=== PATIENT | female | born 1985 | race American Indian/Alaskan Native ===

== ENCOUNTER 2020-01-25 17:58 | Inpatient (IN) | payer MEDICAID ==
--- NOTE | 2020-01-25 20:05 | Event Note ---
ED Screening Note ED Screening Note: n/v that began two days ago no diarrhea +generalized weakness +fatigue mild left sided abd pain no GI doctor states she sees a roasterman and associate professor physician stage 4 CKD PMHx lupus nephritis, asthma, HTN allergy: naproxen LNMP: 01/22/2020 This initial assessment/diagnostic orders/clinical plan/treatment(s) is/are subject to change based on patients health status, clinical progression and re- assessment by fellow clinical providers in the ED. Further treatment and workup at subsequent clinical providers discretion. Patient/guardian urged not to elope from the ED as their condition may be serious if not clinically assessed and managed. Initial orders include: labs, UA
[2020-01-25 20:28] LABS: Basophils % (Auto) 0.9 % (0.0-1.8); Eosinophils # (Auto) 0.1 K/mm3 (0.0-0.4); Eosinophils % (Auto) 1.9 % (0.0-4.3); Hemoglobin 6.6 gm/dl (10.1-14.3); Lymphocytes # (Auto) 1.7 K/mm3 (1.2-5.4); Lymphocytes % (Auto) 40.2 % (13.4-35.0); Mean Corpuscular HGB Conc 34 % (30-34); Mean Corpuscular Volume 87 fl (79-97); Monocytes # (Auto) 0.3 K/mm3 (0.0-0.8); Monocytes % (Auto) 6.5 % (0.0-7.3); Platelet Count 193 K/mm3 (140-440); Red Blood Count 2.24 M/mm3 (3.65-5.03); Red Cell Distribution Width 16.2 % (13.2-15.2)
[2020-01-25 20:31] LABS: Hematocrit 19.4 % (30.3-42.9)
[2020-01-25 20:48] LABS: Albumin 4.5 g/dL (3.9-5); Calcium 7.4 mg/dL (8.4-10.2)
[2020-01-25 21:21] LABS: Bilirubin,Urine NEG (Negative); Blood,Urine SM (Negative); Color,Urine Straw (Yellow); Urobilinogen,Urine < 2.0 mg/dL (<2.0)
[2020-01-25 21:26] LABS: Protein,Urine >500 mg/dL (Negative)
[2020-01-25] MEDS ORDERED: ONDANSETRON 4 MG/2 ML INJ IV ONE (23:26)
--- NOTE | 2020-01-25 23:29 | Emergency Department Report ---
- General Chief complaint: Recheck/Abnormal Lab/Rx Stated complaint: KIDNEY PROBLEM/FATIGUE/VOMITTING Time Seen by Provider: 01/25/20 20:04 Source: patient Mode of arrival: Ambulatory Limitations: No Limitations - History of Present Illness Initial comments: 34-year-old female with a past medical history of lupus and chronic renal sufficiency with AV fistula placement this past August presents to the hospital with complaints of progressively worsening weakness, mild shortness of breath, fatigue that has progressed to nausea, vomiting, and p.o. intolerance. Patient also complaining of mild abdominal discomfort and lower extremity edema. She was told by her [employer] financial[employer] developer Dr. Sanchez that she needed to start dialysis. Patient has a matured AV fistula but has not undergone dialysis in the past. No complaints of fever. Patient had a recent menstrual cycle but denies heavy v aginal bleeding. She also denies melena or hematochezia. Patient states she urinates a lot throughout the day - Related Data Allergies Allergy/AdvReac Type Severity Reaction Status Date / Time naproxen [From Naprosyn] Allergy Hives Verified 01/25/20 23:41 ED Review of Systems ROS: Stated complaint: KIDNEY PROBLEM/FATIGUE/VOMITTING Other details as noted in HPI Comment: All other systems reviewed and negative ED Past Medical Hx - Past Medical History Previous Medical History?: Yes Hx Hypertension: Yes Hx Renal Disease: Yes - Surgical History Past Surgical History?: Yes Additional Surgical History: AV fistula left upper arm. - Social History Smoking Status: Never Smoker Substance Use Type: None ED Physical Exam - General Limitations: No Limitations - Other Other exam information: General: No acute distress Head: Atraumatic Eyes: normal appearance ENT: Moist mucous membranes Neck: Normal appearance, no midline tenderness Chest: Clear to auscultation bilaterally CV: Regular rate and rhythm Abdomen: Soft, normal bowel sounds, nontender, nondistended, no rebound or guarding Rectal: Guaiac negative brown stool Back: Normal inspection Extremity: Lower extremity edema, full range of motion. Left AV fistula to upper arm with palpable thrill Neuro: Alert O x 3, no facial asymmetry, speech clear, no gross motor sensory deficit Psych: Appropriate behavior Skin: No rash ED Course Vital Signs 01/25/20 01/25/20 19:47 23:30 Temperature 98.0 F Pulse Rate 121 H 92 H Respiratory 18 19 Rate Blood Pressure 149/88 139/84 O2 Sat by Pulse 100 100 Oximetry - Consultations Consultation #1: 01/25/20 23:[address] Sanchez and he recommends admission for dialysis. Type and screen ordered with plan to transfuse during dialysis tomorrow ED Medical Decision Making - Lab Data Result diagrams: 01/25/20 20:16 01/25/20 20:16 Lab Results 01/25/20 01/25/20 01/25/20 Range/Units 20:16 20:16 20:16 WBC 4.2 L (4.5-11.0) K/mm3 RBC 2.24 L (3.65-5.03) M/mm3 Hgb 6.6 L (10.1-14.3) gm/dl Hct 19.4 L* (30.3-42.9) % MCV 87 (79-97) fl MCH 30 (28-32) pg MCHC 34 (30-34) % RDW 16.2 H (13.2-15.2) % Plt Count 193 (140-440) K/mm3 Lymph % (Auto) 40.2 H (13.4-35.0) % [place] % (Auto) 6.5 (0.0-7.3) % Eos % (Auto) 1.9 (0.0-4.3) % Baso % (Auto) 0.9 (0.0-1.8) % Lymph # (Auto) 1.7 (1.2-5.4) K/mm3 [place] # (Auto) 0.3 (0.0-0.8) K/mm3 Eos # (Auto) 0.1 (0.0-0.4) K/mm3 Baso # (Auto) 0.0 (0.0-0.1) K/mm3 Seg Neutrophils % 50.5 (40.0-70.0) % Seg Neutrophils # 2.1 (1.8-7.7) K/mm3 Sodium 140 (137-145) mmol/L Potassium 4.3 (3.6-5.0) mmol/L Chloride 103.8 (98-107) mmol/L Carbon Dioxide 16 L (22-30) mmol/L Anion Gap 25 mmol/L BUN 121 H (7-17) mg/dL Creatinine 14.9 H (0.6-1.2) mg/dL Estimated GFR 3 ml/min BUN/Creatinine Ratio 8 % Glucose 104 H (65-100) mg/dL Calcium 7.4 L (8.4-10.2) mg/dL Total Bilirubin 0.30 (0.1-1.2) mg/dL AST 24 (5-40) units/L ALT 15 (7-56) units/L Alkaline Phosphatase 61 (35-129) units/L Total Protein 7.9 (6.3-8.2) g/dL Albumin 4.5 (3.9-5) g/dL Albumin/Globulin Ratio 1.3 % Lipase 140 H (13-60) units/L HCG, Qual Negative (Negative) Urine HCG, Qual (Negative) 01/25/20 Range/Units 23:09 WBC (4.5-11.0) K/mm3 RBC (3.65-5.03) M/mm3 Hgb (10.1-14.3) gm/dl Hct (30.3-42.9) % MCV (79-97) fl MCH (28-32) pg MCHC (30-34) % RDW (13.2-15.2) % Plt Count (140-440) K/mm3 Lymph % (Auto) (13.4-35.0) % [place] % (Auto) (0.0-7.3) % Eos % (Auto) (0.0-4.3) % Baso % (Auto) (0.0-1.8) % Lymph # (Auto) (1.2-5.4) K/mm3 [place] # (Auto) (0.0-0.8) K/mm3 Eos # (Auto) (0.0-0.4) K/mm3 Baso # (Auto) (0.0-0.1) K/mm3 Seg Neutrophils % (40.0-70.0) % Seg Neutrophils # (1.8-7.7) K/mm3 Sodium (137-145) mmol/L Potassium (3.6-5.0) mmol/L Chloride (98-107) mmol/L Carbon Dioxide (22-30) mmol/L Anion Gap mmol/L BUN (7-17) mg/dL Creatinine (0.6-1.2) mg/dL Estimated GFR ml/min BUN/Creatinine Ratio % Glucose (65-100) mg/dL Calcium (8.4-10.2) mg/dL Total Bilirubin (0.1-1.2) mg/dL AST (5-40) units/L ALT (7-56) units/L Alkaline Phosphatase (35-129) units/L Total Protein (6.3-8.2) g/dL Albumin (3.9-5) g/dL Albumin/Globulin Ratio % Lipase (13-60) units/L HCG, Qual (Negative) Urine HCG, Qual Negative (Negative) - Medical Decision Making 33-year-old female presents to the hospital requesting worsening fatigue, weakness, nausea, vomiting and decreased p.o. tolerance. Symptoms likely secondary to worsening renal function with uremia. Patient treated with Zofran in the ED. She is also noted to be significantly anemic without reports of acute blood loss. Guaiac negative. Case discussed with Dr. Sanchez [employer] financial[employer] developer who will arrange for dialysis tomorrow and order blood transfusion during that time 1 unit of PRBC ordered and placed on hold for tomorrow Critical Care Time: Yes Critical care time in (mins) excluding proc time.: 35 Critical care attestation.: If time is entered above; I have spent that time in minutes in the direct care of this critically ill patient, excluding procedure time. ED Disposition Clinical Impression: ESRD needing dialysis, Lupus, Anemia Disposition: OP ADMIT IP TO THIS HOSP Is pt being admited?: Yes Condition: Stable
[2020-01-25 23:43] LABS: HCG Qualitative,Urine Negative (Negative)
--- NOTE | 2020-01-25 23:57 | XRay Report ---
CHEST 1 VIEW INDICATION / CLINICAL INFORMATION: esrd volume overload. COMPARISON: None available. FINDINGS: SUPPORT DEVICES: None. HEART / MEDIASTINUM: Borderline heart size. LUNGS / PLEURA: No significant pulmonary or pleural abnormality. No pneumothorax. ADDITIONAL FINDINGS: No significant additional findings. IMPRESSION: 1. Borderline heart size. The lungs are clear without radiographic evidence for pulmonary edema. Signer Name: Adelaida Martinez MD Signed: 01/25/2020 11:53 PM Workstation Name: [id number]
[2020-01-26] MEDS ORDERED: SODIUM CHLORIDE 0.9% 500 ML 500 ML IV ONE
[2020-01-26] MEDS ORDERED: EPOETIN ALFA 10,000 UNIT/1 ML INJ IV PRN (09:00)
[2020-01-26] MEDS ORDERED: SODIUM CHLORIDE 0.9% 100 ML IV PRN (09:00)
[2020-01-26] MEDS ORDERED: ACETAMINOPHEN 325 MG TAB PO PRN (09:50)
[2020-01-26] MEDS ORDERED: ALBUTEROL 2.5 MG/3 ML NEBU IH PRN (09:50)
[2020-01-26] MEDS ORDERED: NALOXONE 0.4 MG/1 ML INJ IV PRN (09:50)
[2020-01-26] MEDS ORDERED: ALUM-MAG HYDROXIDE-SIMETHICONE 200-200-20MG/5ML ORAL LIQD 30 ML PO PRN (09:50)
--- NOTE | 2020-01-26 09:53 | History and Physical Report ---
History of Present Illness Date of examination: 01/26/20 Date of admission: 01/26/20 09:35 Chief complaint: Persistent nausea with vomiting History of present illness: Patient is a 34-year-old female with history of lupus with with nephritic complications and chronic renal failure as a result with recent AV fistula placement last August intermittent nausea vomiting who presents to the hospital on advice of her director enterprise systems due to progressive worsening weakness, shortness of breath fatigue and persistent nausea vomiting with poor p.o. tolerance. Patient who is normally followed at [facility] established with a director enterprise systems in the community states that her symptoms has been ongoing and progressively gotten getting worse with now abdominal discomfort and lower extremity edema on seeing her director enterprise systems she was recommended to begin dialysis and she presented to the hospital for further evaluation and initiation of dialysis. While she does report a recent menstrual cycle she denies any heavy vaginal bleed denies any melena or hematochezia. She was noted to be anemic on initial labs with a hemoglobin of 6.6. Past History Past Medical History: other (Lupus nephritis, lupus) Past Surgical History: Other (AV fistula) Social history: no significant social history, full code Family history: no significant family history Medications and Allergies Allergies Allergy/AdvReac Type Severity Reaction Status Date / Time naproxen [From Naprosyn] Allergy Hives Verified 01/25/20 23:41 Home Medications Medication Instructions Recorded Confirmed Last Taken Type Calcium Citrate/Vitamin D3 1 tab PO DAILY 01/26/20 01/26/20 01/25/20 History [Calcitrate + Vit D Caplet] Furosemide [Lasix TAB] 40 mg PO QDAY 01/26/20 01/26/20 01/25/20 History Hydroxychloroquine [Plaquenil] 200 mg PO QDAY 01/26/20 01/26/20 01/25/20 History Multivit-Min/Iron/Vitamin K [Adult 1 each PO DAILY 01/26/20 01/26/20 01/25/20 History Multivitamin-Iron Tablet] NIFEdipine [Nifedipine ER] 60 mg PO DAILY 01/26/20 01/26/20 01/25/20 History azaTHIOprine [Imuran] 50 mg PO BID 01/26/20 01/26/20 01/25/20 History Active Meds: Active Medications Azathioprine (Azathioprine 50 Mg Tab) 50 mg PO BID [facility] Calcium Citrate (Calcium Citrate/Vitamin D3 315 Mg/250 Units Tab) 1 each PO DAILY [facility] Epoetin Ricardo (Epoetin Ricadro 10,000 Unit/1 Ml Inj) 10,000 unit IV VINICIUS PRN PRN Reason: hemodialysis Furosemide (Furosemide 40 Mg Tab) 40 mg PO QDAY [facility] Hydroxychloroquine Sulfate (Hydroxychloroquine 200 Mg Tab) 200 mg PO QDAY [facility] Sodium Chloride (Nacl 0.9%) 100 mls @ 999 mls/hr IV VINICIUS PRN PRN Reason: Hypotension Labetalol HCl (Labetalol 20 Mg/4 Ml Inj) 10 mg IV Q6H PRN PRN Reason: Hypertension Last Admin: 01/26/20 05:04 Dose: 10 mg Documented by: Miscellaneous Medication (Multivit-Min/Iron/Vitamin K [Adult Multivitamin-Iron Tablet]) 1 each PO DAILY [facility] Miscellaneous Medication (Nifedipine [Nifedipine Er]) 60 mg PO DAILY [facility] Review of Systems All systems: negative (Except as noted in HPI 14 point system has been reviewed otherwise negative) Exam - Physical Exam Narrative exam: VITAL SIGNS: Reviewed. GENERAL: The patient appears normally developed, Vital signs as documented. HEAD: No signs of head trauma. EYES: Pupils are equal. Extraocular motions intact. Pale EARS: Hearing grossly intact. MOUTH: Oropharynx is normal. Pale oropharyngeal mucosa NECK: No adenopathy, no JVD. CHEST: Chest with clear breath sounds bilaterally. No wheezes, rales, or rhonchi. CARDIAC: Regular rate and rhythm. S1 and S2, without murmurs, gallops, or rubs. VASCULAR: No Edema. AV fistula with palpable thrill ABDOMEN: Soft, non tender and non distended. No rebound or guarding, and no masses palpated. Bowel Sounds normal. MUSCULOSKELETAL: Good range of motion of all major joints. Extremities without clubbing, cyanosis or edema. NEUROLOGIC EXAM: Alert and oriented x 3 No focal sensory or strength defici ts. Speech normal. Follows commands. PSYCHIATRIC: Mood normal. SKIN: detail exam as documented in skin assessment - Constitutional Vitals: Temp Pulse Resp BP Pulse Ox 98.0 F 97 H 18 165/113 95 01/26/20 03:50 01/26/20 05:04 01/26/20 03:50 01/26/20 05:04 01/26/20 03:50 Results - Labs CBC & Chem 7: 12/10/20 20:16 01/25/20 20:16 Labs: Laboratory Last Values WBC 4.2 K/mm3 (4.5-11.0) L 01/25/20 20:16 RBC 2.24 M/mm3 (3.65-5.03) L 01/25/20 20:16 Hgb 6.6 gm/dl (10.1-14.3) L 01/25/20 20:16 Hct 19.4 % (30.3-42.9) L* 01/25/20 20:16 MCV 87 fl (79-97) 01/25/20 20:16 MCH 30 pg (28-32) 01/25/20 20:16 MCHC 34 % (30-34) 01/25/20 20:16 RDW 16.2 % (13.2-15.2) H 01/25/20 20:16 Plt Count 193 K/mm3 (140-440) 01/25/20 20:16 Lymph % (Auto) 40.2 % (13.4-35.0) H 01/25/20 20:16 [place] % (Auto) 6.5 % (0.0-7.3) 01/25/20 20:16 Eos % (Auto) 1.9 % (0.0-4.3) 01/25/20 20:16 Baso % (Auto) 0.9 % (0.0-1.8) 01/25/20 20:16 Lymph # (Auto) 1.7 K/mm3 (1.2-5.4) 01/25/20 20:16 [place] # (Auto) 0.3 K/mm3 (0.0-0.8) 01/25/20 20:16 Eos # (Auto) 0.1 K/mm3 (0.0-0.4) 01/25/20 20:16 Baso # (Auto) 0.0 K/mm3 (0.0-0.1) 01/25/20 20:16 Seg Neutrophils % 50.5 % (40.0-70.0) 01/25/20 20:16 Seg Neutrophils # 2.1 K/mm3 (1.8-7.7) 01/25/20 20:16 Sodium 140 mmol/L (137-145) 01/25/20 20:16 Potassium 4.3 mmol/L (3.6-5.0) 01/25/20 20:16 Chloride 103.8 mmol/L (98-107) 01/25/20 20:16 Carbon Dioxide 16 mmol/L (22-30) L 01/25/20 20:16 Anion Gap 25 mmol/L 01/25/20 20:16 BUN 121 mg/dL (7-17) H 01/25/20 20:16 Creatinine 14.9 mg/dL (0.6-1.2) H 01/25/20 20:16 Estimated GFR 3 ml/min 01/25/20 20:16 BUN/Creatinine Ratio 8 % 01/25/20 20:16 Glucose 104 mg/dL (65-100) H 01/25/20 20:16 Calcium 7.4 mg/dL (8.4-10.2) L 01/25/20 20:16 Total Bilirubin 0.30 mg/dL (0.1-1.2) 01/25/20 20:16 AST 24 units/L (5-40) 01/25/20 20:16 ALT 15 units/L (7-56) 01/25/20 20:16 Alkaline Phosphatase 61 units/L (35-129) 01/25/20 20:16 Total Protein 7.9 g/dL (6.3-8.2) 01/25/20 20:16 Albumin 4.5 g/dL (3.9-5) 01/25/20 20:16 Albumin/Globulin Ratio 1.3 % 01/25/20 20:16 Lipase 140 units/L (13-60) H 01/25/20 20:16 HCG, Qual Negative (Negative) 01/25/20 20:16 Urine Color Straw (Yellow) 01/25/20 Unknown Urine Turbidity Clear (Clear) 01/25/20 Unknown Urine pH 5.0 (5.0-7.0) 01/25/20 Unknown Ur Specific [place] 1.012 (1.003-1.030) 01/25/20 Unknown Urine Protein >500 mg/dL (Negative) 01/25/20 Unknown Urine Glucose (UA) Neg mg/dL (Negative) 01/25/20 Unknown Urine Ketones Neg mg/dL (Negative) 01/25/20 Unknown Urine Blood Sm (Negative) 01/25/20 Unknown Urine Nitrite Neg (Negative) 01/25/20 Unknown Urine Bilirubin Neg (Negative) 01/25/20 Unknown Urine Urobilinogen < 2.0 mg/dL (<2.0) 01/25/20 Unknown Ur Leukocyte Esterase Tr (Negative) 01/25/20 Unknown Urine WBC (Auto) 7.0 /HPF (0.0-6.0) H 01/25/20 Unknown Urine RBC (Auto) 1.0 /HPF (0.0-6.0) 01/25/20 Unknown U Epithel Cells (Auto) 1.0 /HPF (0-13.0) 01/25/20 Unknown Urine HCG, Qual Negative (Negative) 01/25/20 23:09 Blood Type O POSITIVE 01/25/20 23:50 Antibody Screen Negative 01/25/20 23:50 Crossmatch See Detail 01/25/20 23:50 Microbiology: Microbiology 01/25/20 23:23 Stool Stool Occult Blood (KAILEE) - Final Mena/IV: Voiding Method Toilet IV Catheter Type [Right Peripheral IV Antecubital] Assessment and Plan Assessment and plan: Patient is a 34-year-old female with history of lupus with with nephritic complications and chronic renal failure as a result with recent AV fistula p lacement last August intermittent nausea vomiting who presents to the hospital on advice of her director enterprise systems due to progressive worsening weakness, shortness of breath fatigue and persistent nausea vomiting with poor p.o. tolerance. Patient who is normally followed at [facility] established with a director enterprise systems in the community states that her symptoms has been ongoing and progressively gotten getting worse with now abdominal discomfort and lower extremity edema on seeing her director enterprise systems she was recommended to begin dialysis and she presented to the hospital for further evaluation and initiation of dialysis. While she does report a recent menstrual cycle she denies any heavy vaginal bleed denies any melena or hematochezia. She was noted to be anemic on initial labs with a hemoglobin of 6.6. Chest x-ray: IMPRESSION: 1. Borderline heart size. The lungs are clear without radiographic evidence for pulmonary edema End-stage renal disease Lupus nephritis Hypertensive urgency secondary to underlying renal disease Leukopenia Intractable nausea vomiting possible underlining gastro enteritis versus uremic syndrome Uremic syndrome Anemia of chronic disease with possible acute component Lupus Metabolic acidosis Plan Admit to the hospital Nephrology consultation GI cocktail with Zofran Dialysis per director enterprise systems Resume home medications including Imuran Home medications including as needed medication for blood pressure control Plan of care discussed with the patient DVT and GI prophylaxis as noted Advance Directives: Yes Plan of care discussed with patient/family: Yes
[2020-01-26] MEDS: HYDROXYCHLOROQUINE 200 MG TAB PO SCH (11:09)
[2020-01-26] MEDS: FUROSEMIDE 40 MG TAB PO SCH ×2 (11:09→12:37)
[2020-01-26] MEDS: NIFEdipine XL 60 MG TAB PO SCH (11:09)
[2020-01-26] MEDS: MULTIVITAMINS,THER W-MINERALS TAB PO SCH (11:09)
[2020-01-26] MEDS: CALCIUM CITRATE/VITAMIN D3 315 MG/250 UNITS TAB PO SCH (11:14)
--- NOTE | 2020-01-26 12:06 | Consultation ---
History of Present Illness - Reason for Consult chronic renal failure - History of Present Illness pleasant 34-year-old -[place] female with past medical history significant for biopsy-proven lupus nephritis along with hypertension and worsening chronic renal failure who recently was referred to me as a new patient in the office, presented to the emergency room with worsening weakness and fatigue. Labs as an outpatient indicated worsening renal failure and the likely need for initiation of dialysis given concern for worsening uremic symptoms. She had previously seen nephrology at [place] and had an AV fistula placed in preparation for hemodialysis. AV fistula was placed in August and has good thrill and bruit and I anticipate will be able to be used today. Nephrology consult at this time for further management and for initiating hemodialysis as inpatient. She is in the process of being set up at [facility]. She had a recent COVID-19 test done at [place] which per patient was negative. Past History Past Medical History: hypertension, other (Lupus nephritis, lupus) Past Surgical History: Other (AV fistula) Social history: no significant social history, full code Family history: no significant family history Medications and Allergies Allergies Allergy/AdvReac Type Severity Reaction Status Date / Time naproxen [From Naprosyn] Allergy Hives Verified 01/25/20 23:41 Home Medications Medication Instructions Recorded Confirmed Last Taken Type Calcium Citrate/Vitamin D3 1 tab PO DAILY 01/26/20 01/26/20 01/25/20 History [Calcitrate + Vit D Caplet] Furosemide [Lasix TAB] 40 mg PO QDAY 01/26/20 01/26/20 01/25/20 History Hydroxychloroquine [Plaquenil] 200 mg PO QDAY 01/26/20 01/26/20 01/25/20 History Multivit-Min/Iron/Vitamin K [Adult 1 each PO DAILY 01/26/20 01/26/20 01/25/20 History Multivitamin-Iron Tablet] NIFEdipine [Nifedipine ER] 60 mg PO DAILY 01/26/20 01/26/20 01/25/20 History azaTHIOprine [Imuran] 50 mg PO BID 01/26/20 01/26/20 01/25/20 History Active Meds: Active Medications Acetaminophen (Acetaminophen 325 Mg Tab) 650 mg PO Q4H PRN PRN Reason: Pain MILD(1-3)/Fever >100.5/JIM Al Hydrox/Mg Hydrox/Simethicone (Alum-Mag Hydroxide-Simethicone 950-422-78cm/5ml Oral Liqd 30 Ml) 30 ml PO Q4H PRN PRN Reason: Indigestion Albuterol (Albuterol 2.5 Mg/3 Ml Nebu) 2.5 mg IH Q4HRT PRN PRN Reason: Shortness Of Breath Azathioprine (Azathioprine 50 Mg Tab) 50 mg PO BID [facility] Calcium Citrate (Calcium Citrate/Vitamin D3 315 Mg/250 Units Tab) 1 each PO DAILY [facility] Last Admin: 01/26/20 11:14 Dose: 1 each Documented by: Epoetin Ricardo (Epoetin Ricardo 10,000 Unit/1 Ml Inj) 10,000 unit IV VINICIUS PRN PRN Reason: hemodialysis Famotidine (Famotidine 20 Mg Tab) 20 mg PO DAILY [facility] Furosemide (Furosemide 40 Mg Tab) 40 mg PO QDAY [facility] Hydroxychloroquine Sulfate (Hydroxychloroquine 200 Mg Tab) 200 mg PO QDAY [facility] Last Admin: 01/26/20 11:09 Dose: 200 mg Documented by: Sodium Chloride (Nacl 0.9%) 100 mls @ 999 mls/hr IV VINICIUS PRN PRN Reason: Hypotension Labetalol HCl (Labetalol 20 Mg/4 Ml Inj) 10 mg IV Q6H PRN PRN Reason: Hypertension Last Admin: 01/26/20 05:04 Dose: 10 mg Documented by: Multivitamins/Minerals (Multivitamins,Ther W-Minerals Tab) 1 each PO QDAY [facility] Last Admin: 01/26/20 11:09 Dose: 1 each Documented by: Naloxone HCl (Naloxone 0.4 Mg/1 Ml Inj) 0.1 mg IV Q2MIN PRN PRN Reason: Res Rate </= 8 or 02 SAT < 92% Nifedipine (Nifedipine Xl 60 Mg Tab) 60 mg PO QDAY [facility] Last Admin: 01/26/20 11:09 Dose: 60 mg Documented by: Ondansetron HCl (Ondansetron 4 Mg/2 Ml Inj) 4 mg IV Q4H PRN PRN Reason: Nausea And Vomiting Oxycodone/Acetaminophen (Oxycodone /Acetaminophen 5-325mg Tab) 1 tab PO Q6H PRN PRN Reason: Pain, Moderate (4-6) Review of Systems All systems: negative Constitutional: fatigue, weakness Exam - Vital Signs Vital signs: Vital Signs Temp Pulse Resp BP Pulse Ox 98.0 F 121 H 18 149/88 100 01/25/20 19:47 01/25/20 19:47 01/25/20 19:47 01/25/20 19:47 01/25/20 19:47 - General Appearance General appearance: well-developed, appears stated age EENT: ATNC Neck: Present: neck supple Respiratory: Clear to Ascultation, Normal Exam Heart: regular, normal heart rate Gastrointestinal: Present: normal, normoactive bowel sounds Integumentary: no rash Neurologic: no focal deficit, alert and oriented x3 Musculoskeletal: Present: deferred Psychiatric: cooperative Results - Lab Results 01/25/20 20:16 01/25/20 20:16 Most recent lab results Calcium 7.4 mg/dL (8.4-10.2) L 01/25/20 20:16 Assessment and Plan - Patient Problems (1) CKD (chronic kidney disease) stage V requiring chronic dialysis Current Visit: Yes Status: Chronic Plan to address problem: patient has progressive worsening chronic kidney disease now likely requiring dialysis initiation. She has a working fistula and we will plan to initiate hemodialysis while inpatient. Plan is to have her dialyzed for 2 days consecutively. We are working on placement at an outpatient dialysis facility. She was being referred to for [facility]. orders placed for hemodialysis today. (2) Lupus nephritis Current Visit: Yes Status: Chronic Plan to address problem: given her progressively worsening renal failure and now transition to chronic hemodialysis, I had instructed patient to discontinue her Imuran. She can continue on her Plaquenil and she is to continue following up with the awning hanger. (3) Anemia in CKD (chronic kidney disease) Current Visit: Yes Status: Acute Qualifiers: Chronic kidney disease stage: on chronic dialysis Qualified Code(s): N18.6 - End stage renal disease; D63.1 - Anemia in chronic kidney disease; Z99.2 - Dependence on renal dialysis Plan to address problem: we will arrange for COOPER therapy with hemodialysis as outpatient. Agree with transfusing to maintain hemoglobin above 7. (4) Uremia Current Visit: Yes Status: Acute Plan to address problem: concerned that with her progressive symptoms of weakness fatigue generalized malaise along with worsening renal function that she is exhibiting signs of uremia. In this setting we will initiate her on hemodialysis as inpatient. Case management to help with confirming placement at outpatient dialysis facility (5) Hypertensive chronic kidney disease with stage 5 chronic kidney disease or end stage renal disease Current Visit: Yes Status: Acute Plan to address problem: monitor blood pressure is under current regimen.
[2020-01-26 16:42] LABS: Hepatitis B Surface Antigen Non-Reactive (Negative); Hepatitis C Virus Antibody Non-Reactive (NonReactive)
[2020-01-26 21:24] LABS: Hemoglobin 6.9 gm/dl (10.1-14.3)
[2020-01-26 21:43] LABS: Hematocrit 19.7 % (30.3-42.9)
[2020-01-26] MEDS: FAMOTIDINE 20 MG TAB PO SCH (23:32)
[2020-01-26] MEDS: azaTHIOprine 50 MG TAB PO SCH (23:57)
[2020-01-27] MEDS: oxyCODONE /ACETAMINOPHEN 5-325MG TAB PO PRN ×2 (05:34→23:38)
[2020-01-27 08:02] LABS: Basophils % (Auto) 0.7 % (0.0-1.8); Eosinophils % (Auto) 1.5 % (0.0-4.3); Hemoglobin 6.3 gm/dl (10.1-14.3); Lymphocytes # (Auto) 1.2 K/mm3 (1.2-5.4); Lymphocytes % (Auto) 42.4 % (13.4-35.0); Mean Corpuscular HGB Conc 34 % (30-34); Mean Corpuscular Volume 89 fl (79-97); Monocytes # (Auto) 0.2 K/mm3 (0.0-0.8); Platelet Count 134 K/mm3 (140-440); Red Blood Count 2.11 M/mm3 (3.65-5.03); Red Cell Distribution Width 15.9 % (13.2-15.2)
[2020-01-27 08:43] LABS: Hematocrit 18.7 % (30.3-42.9)
[2020-01-27] MEDS: azaTHIOprine 50 MG TAB PO SCH ×3 (09:06→23:31)
[2020-01-27] MEDS ORDERED: SODIUM CHLORIDE 0.9% 500 ML 500 ML IV NR (09:27)
--- NOTE | 2020-01-27 09:37 | Progress Note ---
Assessment and Plan Assessment and plan: Patient is a 34-year-old female with history of lupus with with nephritic complications and chronic renal failure as a result with recent AV fistula placement last August intermittent nausea vomiting who presents to the hospital on advice of her amusement or recreation card checker due to progressive worsening weakness, shortness of breath fatigue and persistent nausea vomiting with poor p.o. tolerance. Patient who is normally followed at [place] none established with a amusement or recreation card checker in the community states that her symptoms has been ongoing and progressively gotten getting worse with now abdominal discomfort and lower extremity edema on seeing her amusement or recreation card checker she was recommended to begin dialysis and she presented to the hospital for further evaluation and initiation of dialysis. While she does report a recent menstrual cycle she denies any heavy vaginal bleed denies any melena or hematochezia. She was noted to be anemic on initial labs with a hemoglobin of 6.6. Chest x-ray: IMPRESSION: 1. Borderline heart size. The lungs are clear without radiographic evidence for pulmonary edema 01/26: Per Nephrology She was being referred to for [facility] on [facility]. Despite Blood transfusion patient still with Low Blood count. Will check stool for occult blood. Will start on Iron replacement,Continue to follow with Appeals Reviewer Veteran on discharge. Request GI eval CKD stage V requiring Dialysis Lupus nephritis Hypertensive urgency secondary to underlying renal disease Leukopenia Intractable nausea vomiting possible underlining gastro enteritis versus uremic syndrome Uremic syndrome Anemia of chronic disease with possible acute component Lupus Metabolic acidosis Plan Admit to the hospital Nephrology consultation GI cocktail with Zofran Dialysis per amusement or recreation card checker Resume home medications including Imuran Home medications including as needed medication for blood pressure control Plan of care discussed with the patient DVT and GI prophylaxis as noted History Interval history: Patient seen and examined, no new complaints. Denies blood in stool Hospitalist Physical - Physical exam Narrative exam: VITAL SIGNS: Reviewed. GENERAL: The patient appears normally developed, Vital signs as documented. HEAD: No signs of head trauma. EYES: Pupils are equal. Extraocular motions intact. Pale EARS: Hearing grossly intact. MOUTH: Oropharynx is normal. Pale oropharyngeal mucosa NECK: No adenopathy, no JVD. CHEST: Chest with clear breath sounds bilaterally. No wheezes, rales, or rhonchi. CARDIAC: Regular rate and rhythm. S1 and S2, without murmurs, gallops, or rubs. VASCULAR: No Edema. AV fistula with palpable thrill ABDOMEN: Soft, non tender and non distended. No rebound or guarding, and no masses palpated. Bowel Sounds normal. MUSCULOSKELETAL: Good range of motion of all major joints. Extremities without clubbing, cyanosis or edema. NEUROLOGIC EXAM: Alert and oriented x 3 No focal sensory or strength defi cits. Speech normal. Follows commands. PSYCHIATRIC: Mood normal. SKIN: detail exam as documented in skin assessment - Constitutional Vitals: Temp Pulse Resp BP Pulse Ox 98.3 F 77 18 164/108 100 01/27/20 07:50 01/27/20 07:50 01/27/20 07:50 01/27/20 07:50 01/27/20 07:50 Results - Labs CBC & Chem 7: 01/27/20 06:33 01/27/20 06:33 Labs: Laboratory Last Values WBC 2.9 K/mm3 (4.5-11.0) L 01/27/20 06:33 RBC 2.11 M/mm3 (3.65-5.03) L 01/27/20 06:33 Hgb 6.3 gm/dl (10.1-14.3) L 01/27/20 06:33 Hct 18.7 % (30.3-42.9) L* 01/27/20 06:33 MCV 89 fl (79-97) 01/27/20 06:33 MCH 30 pg (28-32) 01/27/20 06:33 MCHC 34 % (30-34) 01/27/20 06:33 RDW 15.9 % (13.2-15.2) H 01/27/20 06:33 Plt Count 134 K/mm3 (140-440) L 01/27/20 06:33 Lymph % (Auto) 42.4 % (13.4-35.0) H 01/27/20 06:33 [place] % (Auto) 7.0 % (0.0-7.3) 01/27/20 06:33 Eos % (Auto) 1.5 % (0.0-4.3) 01/27/20 06:33 Baso % (Auto) 0.7 % (0.0-1.8) 01/27/20 06:33 Lymph # (Auto) 1.2 K/mm3 (1.2-5.4) 01/27/20 06:33 [place] # (Auto) 0.2 K/mm3 (0.0-0.8) 01/27/20 06:33 Eos # (Auto) 0.0 K/mm3 (0.0-0.4) 01/27/20 06:33 Baso # (Auto) 0.0 K/mm3 (0.0-0.1) 01/27/20 06:33 Seg Neutrophils % 48.4 % (40.0-70.0) 01/27/20 06:33 Seg Neutrophils # 1.4 K/mm3 (1.8-7.7) L 01/27/20 06:33 Sodium 139 mmol/L (137-145) 01/27/20 06:33 Potassium 3.7 mmol/L (3.6-5.0) 01/27/20 06:33 Chloride 103.3 mmol/L (98-107) 01/27/20 06:33 Carbon Dioxide 24 mmol/L (22-30) D 01/27/20 06:33 Anion Gap 15 mmol/L 01/27/20 06:33 BUN 64 mg/dL (7-17) H 01/27/20 06:33 Creatinine 10.1 mg/dL (0.6-1.2) H 01/27/20 06:33 Estimated GFR 5 ml/min 01/27/20 06:33 BUN/Creatinine Ratio 6 % 01/27/20 06:33 Glucose 95 mg/dL (65-100) 01/27/20 06:33 Calcium 7.0 mg/dL (8.4-10.2) L 01/27/20 06:33 Total Bilirubin 0.30 mg/dL (0.1-1.2) 01/25/20 20:16 AST 24 units/L (5-40) 01/25/20 20:16 ALT 15 units/L (7-56) 01/25/20 20:16 Alkaline Phosphatase 61 units/L (35-129) 01/25/20 20:16 Total Protein 7.9 g/dL (6.3-8.2) 01/25/20 20:16 Albumin 4.5 g/dL (3.9-5) 01/25/20 20:16 Albumin/Globulin Ratio 1.3 % 01/25/20 20:16 Lipase 140 units/L (13-60) H 01/25/20 20:16 HCG, Qual Negative (Negative) 01/25/20 20:16 Urine Color Straw (Yellow) 01/25/20 Unknown Urine Turbidity Clear (Clear) 01/25/20 Unknown Urine pH 5.0 (5.0-7.0) 01/25/20 Unknown Ur Specific [place] 1.012 (1.003-1.030) 01/25/20 Unknown Urine Protein >500 mg/dL (Negative) 01/25/20 Unknown Urine Glucose (UA) Neg mg/dL (Negative) 01/25/20 Unknown Urine Ketones Neg mg/dL (Negative) 01/25/20 Unknown Urine Blood Sm (Negative) 01/25/20 Unknown Urine Nitrite Neg (Negative) 01/25/20 Unknown Urine Bilirubin Neg (Negative) 01/25/20 Unknown Urine Urobilinogen < 2.0 mg/dL (<2.0) 01/25/20 Unknown Ur Leukocyte Esterase Tr (Negative) 01/25/20 Unknown Urine WBC (Auto) 7.0 /HPF (0.0-6.0) H 01/25/20 Unknown Urine RBC (Auto) 1.0 /HPF (0.0-6.0) 01/25/20 Unknown U Epithel Cells (Auto) 1.0 /HPF (0-13.0) 01/25/20 Unknown Urine HCG, Qual Negative (Negative) 01/25/20 23:09 Hepatitis A IgM Ab Non-reactive (NonReactive) 01/26/20 15:42 Hep Bs Antigen Non-reactive (Negative) 01/26/20 15:42 Hep Bs Antigen Non-reactive (Negative) 01/26/20 15:42 Hep B Core IgM Ab Non-reactive (NonReactive) 01/26/20 15:42 Hepatitis C Antibody Non-reactive (NonReactive) 01/26/20 15:42 Blood Type O POSITIVE 01/25/20 23:50 Antibody Screen Negative 01/25/20 23:50 Crossmatch See Detail 01/25/20 23:50 Mena/IV: Voiding Method Toilet IV Catheter Type [Right Peripheral IV Antecubital] Active Medications - Current Medications Current Medications: Generic Name Dose Route Start Last Admin Trade Name Freq PRN Reason Stop Dose Admin Acetaminophen 650 mg 01/26/20 09:50 Acetaminophen 325 Mg Tab PO Q4H PRN Pain MILD(1-3)/Fever >100.5/JIM Al Hydrox/Mg Hydrox/Simethicone 30 ml 01/26/20 09:50 Alum-Mag Hydroxide-Simethicone [id number]/5ml Oral Liqd 30 Ml PO Q4H PRN Indigestion Albuterol 2.5 mg 01/26/20 09:50 Albuterol 2.5 Mg/3 Ml Nebu IH Q4HRT PRN Shortness Of Breath Azathioprine 50 mg 01/26/20 11:00 01/27/20 09:06 Azathioprine 50 Mg Tab PO Not Given BID GIA Calcium Citrate 1 each 01/26/20 11:00 01/26/20 11:14 Calcium Citrate/Vitamin D3 315 Mg/250 Units Tab PO 1 each DAILY GIA Administration Epoetin Ricardo 10,000 unit 01/26/20 09:00 Epoetin Ricardo 10,000 Unit/1 Ml Inj IV VINICIUS PRN hemodialysis Famotidine 20 mg 01/26/20 11:00 01/26/20 23:32 Famotidine 20 Mg Tab PO 20 mg DAILY GIA Administration Furosemide 40 mg 01/26/20 11:00 01/26/20 12:37 Furosemide 40 Mg Tab PO Not Given QDAY GIA Hydroxychloroquine Sulfate 200 mg 01/26/20 11:00 01/26/20 11:09 Hydroxychloroquine 200 Mg Tab PO 200 mg QDAY GIA Administration Sodium Chloride 100 mls @ 999 mls/hr 01/26/20 09:00 Nacl 0.9% IV VINICIUS PRN Hypotension Sodium Chloride 500 mls @ 0 mls/hr 01/27/20 09:27 Nacl 0.9% 500 Ml IV 01/27/20 09:28 ONCE ONE As Directed Labetalol HCl 10 mg 01/26/20 04:52 01/27/20 05:28 Labetalol 20 Mg/4 Ml Inj IV 10 mg Q6H PRN Administration Hypertension Multivitamins/Minerals 1 each 01/26/20 11:00 01/26/20 11:09 Multivitamins,Ther W-Minerals Tab PO 1 each QDAY GIA Administration Naloxone HCl 0.1 mg 01/26/20 09:50 Naloxone 0.4 Mg/1 Ml Inj IV Q2MIN PRN Res Rate </= 8 or 02 SAT < 92% Nifedipine 60 mg 12/11/20 11:00 01/26/20 11:09 Nifedipine Xl 60 Mg Tab PO 60 mg QDAY GIA Administration Ondansetron HCl 4 mg 01/26/20 09:50 Ondansetron 4 Mg/2 Ml Inj IV Q4H PRN Nausea And Vomiting Oxycodone/Acetaminophen 1 tab 01/26/20 09:50 01/27/20 05:34 Oxycodone /Acetaminophen 5-325mg Tab PO 1 tab Q6H PRN Administration Pain, Moderate (4-6)
--- NOTE | 2020-01-27 10:20 | Progress Note ---
Assessment and Plan - Patient Problems (1) ESRD needing dialysis Current Visit: Yes Status: Acute Plan to address problem: patient has progressive worsening chronic kidney disease now requiring dialysis initiation. initiated hemodialysis on 01/25, second HD today, then transition to MWF schedule. We are working on placement at an outpatient dialysis facility. She was being referred to for [facility] on [facility]. (2) Lupus nephritis Current Visit: Yes Status: Chronic Plan to address problem: given her progressively worsening renal failure and now transition to chronic hemodialysis, discontinued Imuran. She can continue on her Plaquenil and she is to continue following up with the lower in supervisor. (3) Anemia in CKD (chronic kidney disease) Current Visit: Yes Status: Acute Qualifiers: Chronic kidney disease stage: on chronic dialysis Qualified Code(s): N18.6 - End stage renal disease; D63.1 - Anemia in chronic kidney disease; Z99.2 - Dependence on renal dialysis Plan to address problem: cont COOPER therapy with hemodialysis as outpatient. Agree with transfusing to maintain hemoglobin above 7. (4) Uremia Current Visit: Yes Status: Acute Plan to address problem: improved uremic symptoms with HD. Case management to help with confirming placement at outpatient dialysis facility (5) Hypertensive chronic kidney disease with stage 5 chronic kidney disease or end stage renal disease Current Visit: Yes Status: Acute Plan to address problem: monitor blood pressure is under current regimen. Subjective Date of service: 01/27/20 Principal diagnosis: ESRD Interval history: Pt seen and examined during HD, no acute complaints, using AVF without problems Objective - Vital Signs Vital signs: Vital Signs - 12hr 01/26/20 01/26/20 01/27/20 23:29 23:33 05:18 Temperature 98.2 F 98.2 F Pulse Rate 75 75 95 H Respiratory 20 18 Rate Blood Pressure 161/110 161/110 168/113 O2 Sat by Pulse 100 94 Oximetry 01/27/20 01/27/20 01/27/20 05:28 05:34 07:50 Temperature 98.3 F Pulse Rate 95 H 77 Respiratory 20 18 Rate Blood Pressure 168/113 164/108 O2 Sat by Pulse 100 Oximetry - General Appearance General appearance: well-developed, well-nourished, appears stated age EENT: ATNC, PERRL, mucous membranes moist Neck: no JVD Respiratory: Present: Clear to Ascultation Cardiology: regular, S1S2 Gastrointestinal: normoactive bowel sounds Integumentary: no rash, other (no edema ) Neurologic: no focal deficit, alert and oriented x3, strength 5/5, CN 3-12 intact Psychiatric: mood/affect appropriate, cooperative - Lab 01/27/20 06:33 01/27/20 06:33 Most recent lab results Calcium 7.0 mg/dL (8.4-10.2) L 01/27/20 06:33 Medications & Allergies - Medications Allergies/Adverse Reactions: Allergies naproxen [From Naprosyn] Allergy (Verified 01/25/20 23:41) Hives Home Medications: Home Medications Medication Instructions Recorded Confirmed Last Taken Type Calcium Citrate/Vitamin D3 1 tab PO DAILY 01/26/20 01/26/20 01/25/20 History [Calcitrate + Vit D Caplet] Furosemide [Lasix TAB] 40 mg PO QDAY 01/26/20 01/26/20 01/25/20 History Hydroxychloroquine [Plaquenil] 200 mg PO QDAY 01/26/20 01/26/20 01/25/20 History Multivit-Min/Iron/Vitamin K [Adult 1 each PO DAILY 01/26/20 01/26/20 01/25/20 History Multivitamin-Iron Tablet] NIFEdipine [Nifedipine ER] 60 mg PO DAILY 01/26/20 01/26/20 01/25/20 History azaTHIOprine [Imuran] 50 mg PO BID 01/26/20 01/26/20 01/25/20 History Active Medications: Generic Name Dose Route Start Last Admin Trade Name Freq PRN Reason Stop Dose Admin Acetaminophen 650 mg 01/26/20 09:50 Acetaminophen 325 Mg Tab PO Q4H PRN Pain MILD(1-3)/Fever >100.5/JIM Al Hydrox/Mg Hydrox/Simethicone 30 ml 01/26/20 09:50 Alum-Mag Hydroxide-Simethicone [id number]/5ml Oral Liqd 30 Ml PO Q4H PRN Indigestion Albuterol 2.5 mg 01/26/20 09:50 Albuterol 2.5 Mg/3 Ml Nebu IH Q4HRT PRN Shortness Of Breath Azathioprine 50 mg 01/26/20 11:00 01/27/20 09:06 Azathioprine 50 Mg Tab PO Not Given BID GIA Calcium Citrate 1 each 01/26/20 11:00 01/26/20 11:14 Calcium Citrate/Vitamin D3 315 Mg/250 Units Tab PO 1 each DAILY GIA Administration Epoetin Ricardo 10,000 unit 01/26/20 09:00 Epoetin Ricardo 10,000 Unit/1 Ml Inj IV VINICIUS PRN hemodialysis Famotidine 20 mg 01/26/20 11:00 01/26/20 23:32 Famotidine 20 Mg Tab PO 20 mg DAILY GIA Administration Ferrous Sulfate 325 mg 01/27/20 14:00 Ferrous Sulfate 325 Mg Tab PO TID GIA Furosemide 40 mg 01/26/20 11:00 01/26/20 12:37 Furosemide 40 Mg Tab PO Not Given QDAY [facility] Hydroxychloroquine Sulfate 200 mg 01/26/20 11:00 01/26/20 11:09 Hydroxychloroquine 200 Mg Tab PO 200 mg QDAY GIA Administration Sodium Chloride 100 mls @ 999 mls/hr 01/26/20 09:00 Nacl 0.9% IV VINICIUS PRN Hypotension Sodium Chloride 500 mls @ 0 mls/hr 01/27/20 09:27 Nacl 0.9% 500 Ml IV 01/27/20 23:59 ONCE NR As Directed Labetalol HCl 10 mg 01/26/20 04:52 01/27/20 05:28 Labetalol 20 Mg/4 Ml Inj IV 10 mg Q6H PRN Administration Hypertension Multivitamins/Minerals 1 each 01/26/20 11:00 01/26/20 11:09 Multivitamins,Ther W-Minerals Tab PO 1 each QDAY GIA Administration Naloxone HCl 0.1 mg 01/26/20 09:50 Naloxone 0.4 Mg/1 Ml Inj IV Q2MIN PRN Res Rate </= 8 or 02 SAT < 92% Nifedipine 60 mg 01/26/20 11:00 01/26/20 11:09 Nifedipine Xl 60 Mg Tab PO 60 mg QDAY GIA Administration Ondansetron HCl 4 mg 01/26/20 09:50 Ondansetron 4 Mg/2 Ml Inj IV Q4H PRN Nausea And Vomiting Oxycodone/Acetaminophen 1 tab 01/26/20 09:50 01/27/20 05:34 Oxycodone /Acetaminophen 5-325mg Tab PO 1 tab Q6H PRN Administration Pain, Moderate (4-6)
[2020-01-27] MEDS: ONDANSETRON 4 MG/2 ML INJ IV PRN (12:30)
--- NOTE | 2020-01-27 16:54 | Consultation ---
History of Present Illness - Reason for Consult Consult date: 01/27/20 Anemia, N/V Requesting physician: HERMELINDA SPRING - History of Present Illness Ms. Beltran is a 34-year-old woman with a longstanding history of lupus as well as progressive end-stage renal disease, on Imuran and Plaquenil. She had a fistula placed for potential dialysis in August of this year. She has anemia for more than 2 years. She presented to the emergency room with a 1 year history of nausea and vomiting that has gotten worse over the last several months, as well as weakness and was admitted for initiation of dialysis. She has lost 45 pounds over the last year. She is followed by rheumatology at [facility]. Bowel movements generally occur 2 or 3 times a day without any change until she started vitamins at which time she started to become constipated. There is been no verna GI bleeding. There is no family history of colon cancer. Medications reviewed. Past History Past Medical History: anemia, ESRD, hypertension, other (Lupus nephritis, SLE - followed at [facility]) Past Surgical History: Other (AV fistula - placed 08/2019) Social history: no significant social history, full code Family history: no significant family history Medications and Allergies Allergies Allergy/AdvReac Type Severity Reaction Status Date / Time naproxen [From Naprosyn] Allergy Hives Verified 01/25/20 23:41 Home Medications Medication Instructions Recorded Confirmed Last Taken Type Calcium Citrate/Vitamin D3 1 tab PO DAILY 01/26/20 01/26/20 01/25/20 History [Calcitrate + Vit D Caplet] Furosemide [Lasix TAB] 40 mg PO QDAY 01/26/20 01/26/20 01/25/20 History Hydroxychloroquine [Plaquenil] 200 mg PO QDAY 01/26/20 01/26/20 01/25/20 History Multivit-Min/Iron/Vitamin K [Adult 1 each PO DAILY 01/26/20 01/26/20 01/25/20 History Multivitamin-Iron Tablet] NIFEdipine [Nifedipine ER] 60 mg PO DAILY 01/26/20 01/26/20 01/25/20 History azaTHIOprine [Imuran] 50 mg PO BID 01/26/20 01/26/20 01/25/20 History Active Meds: Active Medications Acetaminophen (Acetaminophen 325 Mg Tab) 650 mg PO Q4H PRN PRN Reason: Pain MILD(1-3)/Fever >100.5/JIM Al Hydrox/Mg Hydrox/Simethicone (Alum-Mag Hydroxide-Simethicone [id number]/5ml Oral Liqd 30 Ml) 30 ml PO Q4H PRN PRN Reason: Indigestion Albuterol (Albuterol 2.5 Mg/3 Ml Nebu) 2.5 mg IH Q4HRT PRN PRN Reason: Shortness Of Breath Azathioprine (Azathioprine 50 Mg Tab) 50 mg PO BID [facility] Last Admin: 01/27/20 09:06 Dose: Not Given Documented by: Calcium Citrate (Calcium Citrate/Vitamin D3 315 Mg/250 Units Tab) 1 each PO DAILY [facility] Last Admin: 01/26/20 11:14 Dose: 1 each Documented by: Epoetin Ricardo (Epoetin Ricardo 10,000 Unit/1 Ml Inj) 10,000 unit IV VINICIUS PRN PRN Reason: hemodialysis Famotidine (Famotidine 20 Mg Tab) 20 mg PO DAILY [facility] Last Admin: 01/26/20 23:32 Dose: 20 mg Documented by: Ferrous Sulfate (Ferrous Sulfate 325 Mg Tab) 325 mg PO TID [facility] Furosemide (Furosemide 40 Mg Tab) 40 mg PO QDAY [facility] Last Admin: 01/26/20 12:37 Dose: Not Given Documented by: Hydroxychloroquine Sulfate (Hydroxychloroquine 200 Mg Tab) 200 mg PO QDAY [facility] Last Admin: 01/26/20 11:09 Dose: 200 mg Documented by: Sodium Chloride (Nacl 0.9%) 100 mls @ 999 mls/hr IV VINICIUS PRN PRN Reason: Hypotension Sodium Chloride (Nacl 0.9% 500 Ml) 500 mls @ 0 mls/hr IV ONCE NR Stop: 01/27/20 23:59 Labetalol HCl (Labetalol 20 Mg/4 Ml Inj) 10 mg IV Q6H PRN PRN Reason: Hypertension Last Admin: 01/27/20 05:28 Dose: 10 mg Documented by: Multivitamins/Minerals (Multivitamins,Ther W-Minerals Tab) 1 each PO QDAY [facility] Last Admin: 01/26/20 11:09 Dose: 1 each Documented by: Naloxone HCl (Naloxone 0.4 Mg/1 Ml Inj) 0.1 mg IV Q2MIN PRN PRN Reason: Res Rate </= 8 or 02 SAT < 92% Nifedipine (Nifedipine Xl 60 Mg Tab) 60 mg PO QDAY [facility]IA Last Admin: 01/26/20 11:09 Dose: 60 mg Documented by: Ondansetron HCl (Ondansetron 4 Mg/2 Ml Inj) 4 mg IV Q4H PRN PRN Reason: Nausea And Vomiting Oxycodone/Acetaminophen (Oxycodone /Acetaminophen 5-325mg Tab) 1 tab PO Q6H PRN PRN Reason: Pain, Moderate (4-6) Last Admin: 01/27/20 05:34 Dose: 1 tab Documented by: Review of Systems All systems: negative (as noted in HPI) Exam - Constitutional Vitals: Temp Pulse Resp BP Pulse Ox 98.3 F 77 18 164/108 100 01/27/20 07:50 01/27/20 07:50 01/27/20 07:50 01/27/20 07:50 01/27/20 07:50 General appearance: Present: no acute distress - EENT Eyes: Present: PERRL, EOM intact ENT: hearing intact - Respiratory Respiratory effort: normal Respiratory: bilateral: CTA - Cardiovascular Rhythm: regular Heart Sounds: Present: S1 & S2 - Extremities Extremities: No edema Extremity abnormal: other (LUE fistula with thrill) - Abdominal General gastrointestinal: Present: soft, non-tender Results - Labs CBC & Chem 7: 01/27/20 06:33 01/27/20 06:33 Labs: Abnormal lab results 01/25/20 01/26/20 01/27/20 Range/Units 23:50 20:41 06:33 WBC 2.9 L (4.5-11.0) K/mm3 RBC 2.11 L (3.65-5.03) M/mm3 Hgb 6.9 L 6.3 L (10.1-14.3) gm/dl Hct 19.7 L* 18.7 L* (30.3-42.9) % RDW 15.9 H (13.2-15.2) % Plt Count 134 L (140-440) K/mm3 Lymph % (Auto) 42.4 H (13.4-35.0) % Seg Neutrophils # 1.4 L (1.8-7.7) K/mm3 BUN (7-17) mg/dL Creatinine (0.6-1.2) mg/dL Calcium (8.4-10.2) mg/dL Crossmatch See Detail 01/27/20 Range/Units 06:33 WBC (4.5-11.0) K/mm3 RBC (3.65-5.03) M/mm3 Hgb (10.1-14.3) gm/dl Hct (30.3-42.9) % RDW (13.2-15.2) % Plt Count (140-440) K/mm3 Lymph % (Auto) (13.4-35.0) % Seg Neutrophils # (1.8-7.7) K/mm3 BUN 64 H (7-17) mg/dL Creatinine 10.1 H (0.6-1.2) mg/dL Calcium 7.0 L (8.4-10.2) mg/dL Crossmatch Assessment and Plan 1. Anemia -chronic. Due to end-stage renal disease as well as due to anemia of chronic diseases from lupus. Stool for occult blood is negative. There is no indication of a GI source of blood loss. No further evaluation is planned. 2. N/V -due to acute renal failure and uremia. Should resolve with time and dialysis. No GI evaluation planned. Can consider empiric proton pump inhibitors for peptic ulcer disease prophylaxis. We will sign off. Please call as needed.
[2020-01-27] MEDS: FAMOTIDINE 20 MG TAB PO SCH (21:28)
[2020-01-27] MEDS: HYDROXYCHLOROQUINE 200 MG TAB PO SCH (21:28)
[2020-01-27] MEDS: NIFEdipine XL 60 MG TAB PO SCH (21:28)
[2020-01-27] MEDS: FERROUS SULFATE 325 MG TAB PO SCH ×2 (21:29→21:30)
[2020-01-27] MEDS: FUROSEMIDE 40 MG TAB PO SCH (21:29)
[2020-01-27] MEDS: MULTIVITAMINS,THER W-MINERALS TAB PO SCH (21:34)
[2020-01-27] MEDS: CALCIUM CITRATE/VITAMIN D3 315 MG/250 UNITS TAB PO SCH ×2 (21:52→23:31)
[2020-01-28] MEDS: azaTHIOprine 50 MG TAB PO SCH ×3 (01:00→22:02)
[2020-01-28 05:32] LABS: Hemoglobin 6.3 gm/dl (10.1-14.3); Mean Corpuscular HGB Conc 33 % (30-34); Mean Corpuscular Volume 88 fl (79-97); Platelet Count 129 K/mm3 (140-440); Red Blood Count 2.14 M/mm3 (3.65-5.03); Red Cell Distribution Width 15.4 % (13.2-15.2)
[2020-01-28 05:37] LABS: Calcium 7.1 mg/dL (8.4-10.2)
[2020-01-28 06:04] LABS: Hematocrit 18.8 % (30.3-42.9)
[2020-01-28] MEDS ORDERED: SODIUM CHLORIDE 0.9% 500 ML 500 ML IV ONE (06:22)
[2020-01-28] MEDS: HYDROXYCHLOROQUINE 200 MG TAB PO SCH (09:27)
[2020-01-28] MEDS: FAMOTIDINE 20 MG TAB PO SCH (09:27)
[2020-01-28] MEDS: FERROUS SULFATE 325 MG TAB PO SCH ×3 (09:27→22:02)
[2020-01-28] MEDS: MULTIVITAMINS,THER W-MINERALS TAB PO SCH (09:27)
[2020-01-28] MEDS: CALCIUM CITRATE/VITAMIN D3 315 MG/250 UNITS TAB PO SCH (09:28)
[2020-01-28] MEDS: NIFEdipine XL 60 MG TAB PO SCH (09:28)
[2020-01-28] MEDS: FUROSEMIDE 40 MG TAB PO SCH (09:28)
--- NOTE | 2020-01-28 10:35 | Progress Note ---
Assessment and Plan - Patient Problems (1) ESRD needing dialysis Current Visit: Yes Status: Acute Plan to address problem: patient has progressive worsening chronic kidney disease now requiring dialysis initiation. initiated hemodialysis on 01/25 s/p daily HD x 2 days. To transition to MWF schedule. We are working on placement at an outpatient vinicius lysis facility. She was being referred to for [facility]. (2) Lupus nephritis Current Visit: Yes Status: Chronic Plan to address problem: given her progressively worsening renal failure and now transition to chronic hemodialysis, discontinued Imuran. She can continue on her Plaquenil and she is to continue following up with the traffic sign supervisor. (3) Anemia in CKD (chronic kidney disease) Current Visit: Yes Status: Acute Qualifiers: Chronic kidney disease stage: on chronic dialysis Qualified Code(s): N18.6 - End stage renal disease; D63.1 - Anemia in chronic kidney disease; Z99.2 - Dependence on renal dialysis Plan to address problem: cont COOPER therapy with hemodialysis. Agree with 2PRBC transfusion to maintain hemoglobin above 7. (4) Uremia Current Visit: Yes Status: Acute Plan to address problem: improved uremic symptoms with HD. Case management to help with confirming placement at outpatient dialysis facility (5) Hypertensive chronic kidney disease with stage 5 chronic kidney disease or end stage renal disease Current Visit: Yes Status: Acute Plan to address problem: monitor blood pressure is under current regimen. Subjective Date of service: 01/28/20 Principal diagnosis: ESRD Interval history: Pt awake, alert, feeling weak, otherwise denies fever, chills, n/v/d, BRBPR, melena Objective - Vital Signs Vital signs: Vital Signs - 12hr 01/27/20 01/27/20 01/28/20 23:38 23:44 03:35 Temperature 98.4 F 98.4 F Pulse Rate 77 77 99 H Respiratory 16 16 Rate Blood Pressure 170/114 150/100 Blood Pressure 170/114 [Right] O2 Sat by Pulse 98 99 Oximetry 01/28/20 06:59 Temperature 97.9 F Pulse Rate 98 H Respiratory 18 Rate Blood Pressure 124/81 Blood Pressure [Right] O2 Sat by Pulse 99 Oximetry - General Appearance General appearance: well-developed, well-nourished, appears stated age EENT: ATNC, PERRL, mucous membranes moist Neck: no JVD Respiratory: Present: Clear to Ascultation Cardiology: regular, S1S2 Gastrointestinal: normoactive bowel sounds Integumentary: no rash, other Neurologic: no focal deficit, alert and oriented x3, strength 5/5, CN 3-12 intact Psychiatric: mood/affect appropriate, cooperative - Lab 01/28/20 05:00 01/28/20 05:00 Most recent lab results Calcium 7.1 mg/dL (8.4-10.2) L 01/28/20 05:00 Medications & Allergies - Medications Allergies/Adverse Reactions: Allergies naproxen [From Naprosyn] Allergy (Verified 01/25/20 23:41) Hives Home Medications: Home Medications Medication Instructions Recorded Confirmed Last Taken Type Calcium Citrate/Vitamin D3 1 tab PO DAILY 01/26/20 01/26/20 01/25/20 History [Calcitrate + Vit D Caplet] Furosemide [Lasix TAB] 40 mg PO QDAY 01/26/20 01/26/20 01/25/20 History Hydroxychloroquine [Plaquenil] 200 mg PO QDAY 01/26/20 01/26/20 01/25/20 History Multivit-Min/Iron/Vitamin K [Adult 1 each PO DAILY 01/26/20 01/26/20 01/25/20 History Multivitamin-Iron Tablet] NIFEdipine [Nifedipine ER] 60 mg PO DAILY 01/26/20 01/26/20 01/25/20 History azaTHIOprine [Imuran] 50 mg PO BID 01/26/20 01/26/20 01/25/20 History Active Medications: Generic Name Dose Route Start Last Admin Trade Name Freq PRN Reason Stop Dose Admin Acetaminophen 650 mg 01/26/20 09:50 Acetaminophen 325 Mg Tab PO Q4H PRN Pain MILD(1-3)/Fever >100.5/JIM Al Hydrox/Mg Hydrox/Simethicone 30 ml 01/26/20 09:50 Alum-Mag Hydroxide-Simethicone 177-461-99lz/5ml Oral Liqd 30 Ml PO Q4H PRN Indigestion Albuterol 2.5 mg 01/26/20 09:50 Albuterol 2.5 Mg/3 Ml Nebu IH Q4HRT PRN Shortness Of Breath Azathioprine 50 mg 01/26/20 11:00 01/28/20 01:00 Azathioprine 50 Mg Tab PO Not Given BID [facility] Calcium Citrate 1 each 01/26/20 11:00 01/28/20 09:28 Calcium Citrate/Vitamin D3 315 Mg/250 Units Tab PO 1 each DAILY GIA Administration Epoetin Ricardo 10,000 unit 01/26/20 09:00 Epoetin Ricardo 10,000 Unit/1 Ml Inj IV VINICIUS PRN hemodialysis Famotidine 20 mg 01/26/20 11:00 01/28/20 09:27 Famotidine 20 Mg Tab PO 20 mg DAILY GIA Administration Ferrous Sulfate 325 mg 01/27/20 14:00 01/28/20 09:27 Ferrous Sulfate 325 Mg Tab PO 325 mg TID GIA Administration Furosemide 40 mg 01/26/20 11:00 01/28/20 09:28 Furosemide 40 Mg Tab PO 40 mg QDAY [facility] Administration Hydroxychloroquine Sulfate 200 mg 01/26/20 11:00 01/28/20 09:27 Hydroxychloroquine 200 Mg Tab PO 200 mg QDAY [facility] Administration Sodium Chloride 100 mls @ 999 mls/hr 01/26/20 09:00 Nacl 0.9% IV VINICIUS PRN Hypotension Labetalol HCl 10 mg 01/26/20 04:52 01/27/20 23:38 Labetalol 20 Mg/4 Ml Inj IV 10 mg Q6H PRN Administration Hypertension Multivitamins/Minerals 1 each 01/26/20 11:00 01/28/20 09:27 Multivitamins,Ther W-Minerals Tab PO 1 each QDAY GIA Administration Naloxone HCl 0.1 mg 01/26/20 09:50 Naloxone 0.4 Mg/1 Ml Inj IV Q2MIN PRN Res Rate </= 8 or 02 SAT < 92% Nifedipine 60 mg 01/26/20 11:00 01/28/20 09:28 Nifedipine Xl 60 Mg Tab PO 60 mg QDAY [facility] Administration Ondansetron HCl 4 mg 01/26/20 09:50 01/27/20 12:30 Ondansetron 4 Mg/2 Ml Inj IV 4 mg Q4H PRN Administration Nausea And Vomiting Oxycodone/Acetaminophen 1 tab 01/26/20 09:50 01/27/20 23:38 Oxycodone /Acetaminophen 5-325mg Tab PO 1 tab Q6H PRN Administration Pain, Moderate (4-6)
--- NOTE | 2020-01-28 11:36 | Progress Note ---
Assessment and Plan Assessment and plan: Patient is a 34-year-old female with history of lupus with with nephritic complications and chronic renal failure as a result with recent AV fistula placement last August intermittent nausea vomiting who presents to the hospital on advice of her commercial loan closer due to progressive worsening weakness, shortness of breath fatigue and persistent nausea vomiting with poor p.o. tolerance. Patient who is normally followed at [facility] established with a commercial loan closer in the community states that her symptoms has been ongoing and progressively gotten getting worse with now abdominal discomfort and lower extremity edema on seeing her commercial loan closer she was recommended to begin dialysis and she presented to the hospital for further evaluation and initiation of dialysis. While she does report a recent menstrual cycle she denies any heavy vaginal bleed denies any melena or hematochezia. She was noted to be anemic on initial labs with a hemoglobin of 6.6. Chest x-ray: IMPRESSION: 1. Borderline heart size. The lungs are clear without radiographic evidence for pulmonary edema 01/26: Per Nephrology She was being referred to for [facility]. Despite Blood transfusion patient still with Low Blood count. Will check stool for occult blood. Will start on Iron replacement,Continue to follow with Respiratory Equipment Assistant on discharge. Request GI eval 01/27: Discussed with developer prover mechanical and also commercial loan closer. Patient got an additional unit of blood no further patient's gastrointestinal Intervention needed, Will await Case management to ensure HD chair time by AM to discharge. CKD stage V requiring Dialysis Lupus nephritis Hypertensive urgency secondary to underlying renal disease Leukopenia Intractable nausea vomiting possible underlining gastro enteritis versus uremic syndrome Uremic syndrome Anemia of chronic disease with possible acute component Lupus Metabolic acidosis Plan Nephrology consultation GI cocktail with Zofran Dialysis per commercial loan closer Resume home medications including Imuran Home medications including as needed medication for blood pressure control Plan of care discussed with the patient DVT and GI prophylaxis as noted History Interval history: Patient seen and examined, no new complaints. Denies blood in stool Hospitalist Physical - Physical exam Narrative exam: VITAL SIGNS: Reviewed. GENERAL: The patient appears normally developed, Vital signs as documented. HEAD: No signs of head trauma. EYES: Pupils are equal. Extraocular motions intact. Pale EARS: Hearing grossly intact. MOUTH: Oropharynx is normal. Pale oropharyngeal mucosa NECK: No adenopathy, no JVD. CHEST: Chest with clear breath sounds bilaterally. No wheezes, rales, or rhonchi. CARDIAC: Regular rate and rhythm. S1 and S2, without murmurs, gallops, or rubs. VASCULAR: No Edema. AV fistula with palpable thrill ABDOMEN: Soft, non tender and non distended. No rebound or guarding, and no masses palpated. Bowel Sounds normal. MUSCULOSKELETAL: Good range of motion of all major joints. Extremities without clubbing, cyanosis or edema. NEUROLOGIC EXAM: Alert and oriented x 3 No focal sensory or strength deficits. Speech normal. Follows commands. PSYCHIATRIC: Mood normal. SKIN: detail exam as documented in skin assessment - Constitutional Vitals: Temp Pulse Resp BP Pulse Ox 97.9 F 98 H 18 124/81 99 01/28/20 06:59 01/28/20 06:59 01/28/20 06:59 01/28/20 06:59 01/28/20 06:59 General appearance: Present: no acute distress Results - Labs CBC & Chem 7: 01/28/20 05:00 01/28/20 05:00 Labs: Laboratory Last Values WBC 3.2 K/mm3 (4.5-11.0) L 01/28/20 05:00 RBC 2.14 M/mm3 (3.65-5.03) L 01/28/20 05:00 Hgb 6.3 gm/dl (10.1-14.3) L 01/28/20 05:00 Hct 18.8 % (30.3-42.9) L* 01/28/20 05:00 MCV 88 fl (79-97) 01/28/20 05:00 MCH 29 pg (28-32) 01/28/20 05:00 MCHC 33 % (30-34) 01/28/20 05:00 RDW 15.4 % (13.2-15.2) H 01/28/20 05:00 Plt Count 129 K/mm3 (140-440) L 01/28/20 05:00 Lymph % (Auto) 42.4 % (13.4-35.0) H 01/27/20 06:33 [place] % (Auto) 7.0 % (0.0-7.3) 01/27/20 06:33 Eos % (Auto) 1.5 % (0.0-4.3) 01/27/20 06:33 Baso % (Auto) 0.7 % (0.0-1.8) 01/27/20 06:33 Lymph # (Auto) 1.2 K/mm3 (1.2-5.4) 01/27/20 06:33 [place] # (Auto) 0.2 K/mm3 (0.0-0.8) 01/27/20 06:33 Eos # (Auto) 0.0 K/mm3 (0.0-0.4) 01/27/20 06:33 Baso # (Auto) 0.0 K/mm3 (0.0-0.1) 01/27/20 06:33 Seg Neutrophils % 48.4 % (40.0-70.0) 01/27/20 06:33 Seg Neutrophils # 1.4 K/mm3 (1.8-7.7) L 01/27/20 06:33 Sodium 136 mmol/L (137-145) L 01/28/20 05:00 Potassium 3.7 mmol/L (3.6-5.0) 01/28/20 05:00 Chloride 98.3 mmol/L (98-107) 01/28/20 05:00 Carbon Dioxide 26 mmol/L (22-30) 01/28/20 05:00 Anion Gap 15 mmol/L 01/28/20 05:00 BUN 40 mg/dL (7-17) H 01/28/20 05:00 Creatinine 7.5 mg/dL (0.6-1.2) H 01/28/20 05:00 Estimated GFR 8 ml/min 01/28/20 05:00 BUN/Creatinine Ratio 5 % 01/28/20 05:00 Glucose 91 mg/dL (65-100) 01/28/20 05:00 Calcium 7.1 mg/dL (8.4-10.2) L 01/28/20 05:00 Total Bilirubin 0.30 mg/dL (0.1-1.2) 01/25/20 20:16 AST 24 units/L (5-40) 01/25/20 20:16 ALT 15 units/L (7-56) 01/25/20 20:16 Alkaline Phosphatase 61 units/L (35-129) 01/25/20 20:16 Total Protein 7.9 g/dL (6.3-8.2) 01/25/20 20:16 Albumin 4.5 g/dL (3.9-5) 01/25/20 20:16 Albumin/Globulin Ratio 1.3 % 01/25/20 20:16 Lipase 140 units/L (13-60) H 01/25/20 20:16 HCG, Qual Negative (Negative) 01/25/20 20:16 Urine Color Straw (Yellow) 01/25/20 Unknown Urine Turbidity Clear (Clear) 01/25/20 Unknown Urine pH 5.0 (5.0-7.0) 01/25/20 Unknown Ur Specific Mel[place] 1.012 (1.003-1.030) 01/25/20 Unknown Urine Protein >500 mg/dL (Negative) 01/25/20 Unknown Urine Glucose (UA) Neg mg/dL (Negative) 01/25/20 Unknown Urine Ketones Neg mg/dL (Negative) 01/25/20 Unknown Urine Blood Sm (Negative) 01/25/20 Unknown Urine Nitrite Neg (Negative) 01/25/20 Unknown Urine Bilirubin Neg (Negative) 01/25/20 Unknown Urine Urobilinogen < 2.0 mg/dL (<2.0) 01/25/20 Unknown Ur Leukocyte Esterase Tr (Negative) 01/25/20 Unknown Urine WBC (Auto) 7.0 /HPF (0.0-6.0) H 01/25/20 Unknown Urine RBC (Auto) 1.0 /HPF (0.0-6.0) 01/25/20 Unknown U Epithel Cells (Auto) 1.0 /HPF (0-13.0) 01/25/20 Unknown Urine HCG, Qual Negative (Negative) 01/25/20 23:09 Hepatitis A IgM Ab Non-reactive (NonReactive) 01/26/20 15:42 Hep Bs Antigen Non-reactive (Negative) 01/26/20 15:42 Hep Bs Antigen Non-reactive (Negative) 01/26/20 15:42 Hep B Core IgM Ab Non-reactive (NonReactive) 01/26/20 15:42 Hepatitis C Antibody Non-reactive (NonReactive) 01/26/20 15:42 Blood Type O POSITIVE 01/25/20 23:50 Antibody Screen Negative 01/25/20 23:50 Crossmatch See Detail 01/25/20 23:50 Mena/IV: Voiding Method Toilet IV Catheter Type [Right Peripheral IV Antecubital] Active Medications - Current Medications Current Medications: Generic Name Dose Route Start Last Admin Trade Name Freq PRN Reason Stop Dose Admin Acetaminophen 650 mg 01/26/20 09:50 Acetaminophen 325 Mg Tab PO Q4H PRN Pain MILD(1-3)/Fever >100.5/JIM Al Hydrox/Mg Hydrox/Simethicone 30 ml 01/26/20 09:50 Alum-Mag Hydroxide-Simethicone 706-762-02gr/5ml Oral Liqd 30 Ml PO Q4H PRN Indigestion Albuterol 2.5 mg 01/26/20 09:50 Albuterol 2.5 Mg/3 Ml Nebu IH Q4HRT PRN Shortness Of Breath Azathioprine 50 mg 01/26/20 11:00 01/28/20 01:00 Azathioprine 50 Mg Tab PO Not Given BID GIA Calcium Citrate 1 each 01/26/20 11:00 01/28/20 09:28 Calcium Citrate/Vitamin D3 315 Mg/250 Units Tab PO 1 each DAILY GIA Administration Epoetin Ricardo 10,000 unit 01/26/20 09:00 Epoetin Ricardo 10,000 Unit/1 Ml Inj IV VINICIUS PRN hemodialysis Famotidine 20 mg 01/26/20 11:00 01/28/20 09:27 Famotidine 20 Mg Tab PO 20 mg DAILY GIA Administration Ferrous Sulfate 325 mg 01/27/20 14:00 01/28/20 09:27 Ferrous Sulfate 325 Mg Tab PO 325 mg TID GIA Administration Furosemide 40 mg 01/26/20 11:00 01/28/20 09:28 Furosemide 40 Mg Tab PO 40 mg QDAY GIA Administration Hydroxychloroquine Sulfate 200 mg 01/26/20 11:00 01/28/20 09:27 Hydroxychloroquine 200 Mg Tab PO 200 mg QDAY GIA Administration Sodium Chloride 100 mls @ 999 mls/hr 01/26/20 09:00 Nacl 0.9% IV VINICIUS PRN Hypotension Labetalol HCl 10 mg 01/26/20 04:52 01/27/20 23:38 Labetalol 20 Mg/4 Ml Inj IV 10 mg Q6H PRN Administration Hypertension Multivitamins/Minerals 1 each 01/26/20 11:00 01/28/20 09:27 Multivitamins,Ther W-Minerals Tab PO 1 each QDAY GIA Administration Naloxone HCl 0.1 mg 01/26/20 09:50 Naloxone 0.4 Mg/1 Ml Inj IV Q2MIN PRN Res Rate </= 8 or 02 SAT < 92% Nifedipine 60 mg 01/26/20 11:00 01/28/20 09:28 Nifedipine Xl 60 Mg Tab PO 60 mg QDAY GIA Administration Ondansetron HCl 4 mg 01/26/20 09:50 01/27/20 12:30 Ondansetron 4 Mg/2 Ml Inj IV 4 mg Q4H PRN Administration Nausea And Vomiting Oxycodone/Acetaminophen 1 tab 01/26/20 09:50 01/27/20 23:38 Oxycodone /Acetaminophen 5-325mg Tab PO 1 tab Q6H PRN Administration Pain, Moderate (4-6)
[2020-01-29] MEDS ORDERED: SODIUM CHLORIDE 0.9% 100 ML IV PRN (08:00)
[2020-01-29] MEDS: FAMOTIDINE 20 MG TAB PO SCH (09:18)
[2020-01-29] MEDS: FERROUS SULFATE 325 MG TAB PO SCH ×3 (09:18→21:23)
[2020-01-29] MEDS: NIFEdipine XL 60 MG TAB PO SCH (09:18)
[2020-01-29] MEDS: FUROSEMIDE 40 MG TAB PO SCH (09:18)
[2020-01-29] MEDS: HYDROXYCHLOROQUINE 200 MG TAB PO SCH (09:18)
[2020-01-29] MEDS: hydrALAZINE 25 MG TAB PO SCH ×3 (09:19→21:23)
[2020-01-29] MEDS: CALCIUM CITRATE/VITAMIN D3 315 MG/250 UNITS TAB PO SCH (09:19)
[2020-01-29] MEDS: MULTIVITAMINS,THER W-MINERALS TAB PO SCH (09:19)
[2020-01-29] MEDS: azaTHIOprine 50 MG TAB PO SCH (09:23)
--- NOTE | 2020-01-29 09:36 | Progress Note ---
Assessment and Plan Assessment and plan: Patient is a 34-year-old female with history of lupus with with nephritic complications and chronic renal failure as a result with recent AV fistula placement last August intermittent nausea vomiting who presents to the hospital on advice of her production hand due to progressive worsening weakness, shortness of breath fatigue and persistent nausea vomiting with poor p.o. tolerance. Patient who is normally followed at [facility] established with a production hand in the community states that her symptoms has been ongoing and progressively gotten getting worse with now abdominal discomfort and lower extremity edema on seeing her production hand she was recommended to begin dialysis and she presented to the hospital for further evaluation and initiation of dialysis. While she does report a recent menstrual cycle she denies any heavy vaginal bleed denies any melena or hematochezia. She was noted to be anemic on initial labs with a hemoglobin of 6.6. Chest x-ray: IMPRESSION: 1. Borderline heart size. The lungs are clear without radiographic evidence for pulmonary edema 01/26: Per Nephrology She was being referred to for [facility]. Despite Blood transfusion patient still with Low Blood count. Will check stool for occult blood. Will start on Iron replacement,Continue to follow with Stock Trader on discharge. Request GI eval 01/27: Discussed with econometrics professor and also production hand. Patient got an additional unit of blood no further patient's gastrointestinal Intervention needed, Will await Case management to ensure HD chair time by AM to discharge. 01/28: Patient seen and examined resting comfortably no new complaints. Covid test ordered for dialysis placement. No new issues reported today. Once outpatient HD is arranged patient can be discharged. Mild elevated blood pressure adjusted blood pressure medications and plan advised with patient. CKD stage V requiring Dialysis Lupus nephritis Hypertensive urgency secondary to underlying renal disease Leukopenia Intractable nausea vomiting possible underlining gastro enteritis versus uremic syndrome Uremic syndrome Anemia of chronic disease with possible acute component Lupus Metabolic acidosis Plan Nephrology consultation GI cocktail with Zofran Dialysis per production hand Resume home medications including Imuran Home medications including as needed medication for blood pressure control Plan of care discussed with the patient DVT and GI prophylaxis as noted History Interval history: Patient seen and examined, no new complaints. Denies blood in stool Hospitalist Physical - Physical exam Narrative exam: VITAL SIGNS: Reviewed. GENERAL: The patient appears normally developed, Vital signs as documented. HEAD: No signs of head trauma. EYES: Pupils are equal. Extraocular motions intact. Pale EARS: Hearing grossly intact. MOUTH: Oropharynx is normal. Pale oropharyngeal mucosa NECK: No adenopathy, no JVD. CHEST: Chest with clear breath sounds bilaterally. No wheezes, rales, or rhonchi. CARDIAC: Regular rate and rhythm. S1 and S2, without murmurs, gallops, or rubs. VASCULAR: No Edema. AV fistula with palpable thrill ABDOMEN: Soft, non tender and non distended. No rebound or guarding, and no masses palpated. Bowel Sounds normal. MUSCULOSKELETAL: Good range of motion of all major joints. Extremities without clubbing, cyanosis or edema. NEUROLOGIC EXAM: Alert and oriented x 3 No focal sensory or strength deficits. Speech normal. Follows commands. PSYCHIATRIC: Mood normal. SKIN: detail exam as documented in skin assessment - Constitutional Vitals: Temp Pulse Resp BP Pulse Ox 98.5 F 82 18 158/101 100 01/29/20 09:02 01/29/20 09:02 01/29/20 09:02 01/29/20 09:02 01/29/20 09:02 General appearance: Present: no acute distress Results - Labs CBC & Chem 7: 01/28/20 05:00 01/28/20 05:00 Labs: Laboratory Last Values WBC 3.2 K/mm3 (4.5-11.0) L 01/28/20 05:00 RBC 2.14 M/mm3 (3.65-5.03) L 01/28/20 05:00 Hgb 6.3 gm/dl (10.1-14.3) L 01/28/20 05:00 Hct 18.8 % (30.3-42.9) L* 01/28/20 05:00 MCV 88 fl (79-97) 01/28/20 05:00 MCH 29 pg (28-32) 01/28/20 05:00 MCHC 33 % (30-34) 01/28/20 05:00 RDW 15.4 % (13.2-15.2) H 01/28/20 05:00 Plt Count 129 K/mm3 (140-440) L 01/28/20 05:00 Lymph % (Auto) 42.4 % (13.4-35.0) H 01/27/20 06:33 [place] % (Auto) 7.0 % (0.0-7.3) 01/27/20 06:33 Eos % (Auto) 1.5 % (0.0-4.3) 01/27/20 06:33 Baso % (Auto) 0.7 % (0.0-1.8) 01/27/20 06:33 Lymph # (Auto) 1.2 K/mm3 (1.2-5.4) 01/27/20 06:33 [place] # (Auto) 0.2 K/mm3 (0.0-0.8) 01/27/20 06:33 Eos # (Auto) 0.0 K/mm3 (0.0-0.4) 01/27/20 06:33 Baso # (Auto) 0.0 K/mm3 (0.0-0.1) 01/27/20 06:33 Seg Neutrophils % 48.4 % (40.0-70.0) 01/27/20 06:33 Seg Neutrophils # 1.4 K/mm3 (1.8-7.7) L 01/27/20 06:33 Sodium 136 mmol/L (137-145) L 01/28/20 05:00 Potassium 3.7 mmol/L (3.6-5.0) 01/28/20 05:00 Chloride 98.3 mmol/L (98-107) 01/28/20 05:00 Carbon Dioxide 26 mmol/L (22-30) 01/28/20 05:00 Anion Gap 15 mmol/L 01/28/20 05:00 BUN 40 mg/dL (7-17) H 01/28/20 05:00 Creatinine 7.5 mg/dL (0.6-1.2) H 01/28/20 05:00 Estimated GFR 8 ml/min 01/28/20 05:00 BUN/Creatinine Ratio 5 % 01/28/20 05:00 Glucose 91 mg/dL (65-100) 01/28/20 05:00 Calcium 7.1 mg/dL (8.4-10.2) L 01/28/20 05:00 Total Bilirubin 0.30 mg/dL (0.1-1.2) 01/25/20 20:16 AST 24 units/L (5-40) 01/25/20 20:16 ALT 15 units/L (7-56) 01/25/20 20:16 Alkaline Phosphatase 61 units/L (35-129) 01/25/20 20:16 Total Protein 7.9 g/dL (6.3-8.2) 01/25/20 20:16 Albumin 4.5 g/dL (3.9-5) 01/25/20 20:16 Albumin/Globulin Ratio 1.3 % 01/25/20 20:16 Lipase 140 units/L (13-60) H 01/25/20 20:16 HCG, Qual Negative (Negative) 01/25/20 20:16 Urine Color Straw (Yellow) 01/25/20 Unknown Urine Turbidity Clear (Clear) 01/25/20 Unknown Urine pH 5.0 (5.0-7.0) 01/25/20 Unknown Ur Specific [place] 1.012 (1.003-1.030) 01/25/20 Unknown Urine Protein >500 mg/dL (Negative) 01/25/20 Unknown Urine Glucose (UA) Neg mg/dL (Negative) 01/25/20 Unknown Urine Ketones Neg mg/dL (Negative) 01/25/20 Unknown Urine Blood Sm (Negative) 01/25/20 Unknown Urine Nitrite Neg (Negative) 01/25/20 Unknown Urine Bilirubin Neg (Negative) 01/25/20 Unknown Urine Urobilinogen < 2.0 mg/dL (<2.0) 01/25/20 Unknown Ur Leukocyte Esterase Tr (Negative) 01/25/20 Unknown Urine WBC (Auto) 7.0 /HPF (0.0-6.0) H 01/25/20 Unknown Urine RBC (Auto) 1.0 /HPF (0.0-6.0) 01/25/20 Unknown U Epithel Cells (Auto) 1.0 /HPF (0-13.0) 01/25/20 Unknown Urine HCG, Qual Negative (Negative) 01/25/20 23:09 Hepatitis A IgM Ab Non-reactive (NonReactive) 01/26/20 15:42 Hep Bs Antigen Non-reactive (Negative) 01/26/20 15:42 Hep Bs Antigen Non-reactive (Negative) 01/26/20 15:42 Hep B Core IgM Ab Non-reactive (NonReactive) 01/26/20 15:42 Hepatitis C Antibody Non-reactive (NonReactive) 01/26/20 15:42 Blood Type O POSITIVE 01/25/20 23:50 Antibody Screen Negative 01/25/20 23:50 Crossmatch See Detail 01/25/20 23:50 Mena/IV: Voiding Method Toilet IV Catheter Type [Right Peripheral IV Antecubital] Active Medications - Current Medications Current Medications: Generic Name Dose Route Start Last Admin Trade Name Freq PRN Reason Stop Dose Admin Acetaminophen 650 mg 01/26/20 09:50 Acetaminophen 325 Mg Tab PO Q4H PRN Pain MILD(1-3)/Fever >100.5/JIM Al Hydrox/Mg Hydrox/Simethicone 30 ml 01/26/20 09:50 Alum-Mag Hydroxide-Simethicone [id number]/5ml Oral Liqd 30 Ml PO Q4H PRN Indigestion Albuterol 2.5 mg 01/26/20 09:50 Albuterol 2.5 Mg/3 Ml Nebu IH Q4HRT PRN Shortness Of Breath Azathioprine 50 mg 01/26/20 11:00 01/29/20 09:23 Azathioprine 50 Mg Tab PO Not Given BID GIA Calcium Citrate 1 each 01/26/20 11:00 01/29/20 09:19 Calcium Citrate/Vitamin D3 315 Mg/250 Units Tab PO 1 each DAILY GIA Administration Epoetin Ricardo 10,000 unit 01/26/20 09:00 Epoetin Ricardo 10,000 Unit/1 Ml Inj IV VINICIUS PRN hemodialysis Famotidine 20 mg 01/26/20 11:00 01/29/20 09:18 Famotidine 20 Mg Tab PO 20 mg DAILY GIA Administration Ferrous Sulfate 325 mg 01/27/20 14:00 01/29/20 09:18 Ferrous Sulfate 325 Mg Tab PO 325 mg TID GIA Administration Furosemide 40 mg 01/26/20 11:00 01/29/20 09:18 Furosemide 40 Mg Tab PO 40 mg QDAY IGA Administration Hydralazine HCl 25 mg 01/29/20 09:00 01/29/20 09:19 Hydralazine 25 Mg Tab PO 25 mg Q8HR GIA Administration Hydroxychloroquine Sulfate 200 mg 01/26/20 11:00 01/29/20 09:18 Hydroxychloroquine 200 Mg Tab PO 200 mg QDAY GIA Administration Sodium Chloride 100 mls @ 999 mls/hr 01/29/20 08:00 Nacl 0.9% IV VINICIUS PRN Hypotension Labetalol HCl 10 mg 01/26/20 04:52 01/29/20 04:25 Labetalol 20 Mg/4 Ml Inj IV 10 mg Q6H PRN Administration Hypertension Multivitamins/Minerals 1 each 01/26/20 11:00 01/29/20 09:19 Multivitamins,Ther W-Minerals Tab PO 1 each QDAY GIA Administration Naloxone HCl 0.1 mg 01/26/20 09:50 Naloxone 0.4 Mg/1 Ml Inj IV Q2MIN PRN Res Rate </= 8 or 02 SAT < 92% Nifedipine 60 mg 01/26/20 11:00 01/29/20 09:18 Nifedipine Xl 60 Mg Tab PO 60 mg QDAY GIA Administration Ondansetron HCl 4 mg 01/26/20 09:50 01/27/20 12:30 Ondansetron 4 Mg/2 Ml Inj IV 4 mg Q4H PRN Administration Nausea And Vomiting Oxycodone/Acetaminophen 1 tab 01/26/20 09:50 01/27/20 23:38 Oxycodone /Acetaminophen 5-325mg Tab PO 1 tab Q6H PRN Administration Pain, Moderate (4-6)
--- NOTE | 2020-01-29 09:45 | Progress Note ---
Assessment and Plan - Patient Problems (1) CKD (chronic kidney disease) stage V requiring chronic dialysis Current Visit: Yes Status: Chronic Plan to address problem: Patient has been started on dialysis. We will arrange for outpatient dialysis at [facility] dialysis. (2) Anemia in CKD (chronic kidney disease) Current Visit: Yes Status: Acute Qualifiers: Chronic kidney disease stage: on chronic dialysis Qualified Code(s): N18.6 - End stage renal disease; D63.1 - Anemia in chronic kidney disease; Z99.2 - Dependence on renal dialysis Plan to address problem: Give erythropoietin on dialysis. Follow-up hemoglobin (3) Hypertensive chronic kidney disease with stage 5 chronic kidney disease or end stage renal disease Current Visit: Yes Status: Acute Plan to address problem: Follow-up blood pressure on current medications (4) Lupus nephritis Current Visit: Yes Status: Chronic Plan to address problem: Continue azathioprine Subjective Date of service: 01/29/20 Principal diagnosis: ESRD Interval history: Patient seen sitting up in bed. She has no complaints. She wants to go home. Objective - Exam Narrative Exam: Young -Faroese female lying in bed in no acute distress HEENT: NCAT, pink oral mucous membrane Neck: Supple, no venous distention CVS: S1S2 RRR with no murmur, rub or gallop Chest: Clear to auscultation Abdomen: Protuberant, soft, nontender, no organomegaly, bowel sounds are present Extremities: No edema Neuro: Awake, alert no focal deficits - Vital Signs Vital signs: Vital Signs - 12hr 01/29/20 01/29/20 01/29/20 00:04 04:18 04:25 Temperature 98.3 F 98.1 F Pulse Rate 93 H 90 Respiratory 16 14 Rate Blood Pressure 159/111 164/122 164/122 O2 Sat by Pulse 98 95 Oximetry 01/29/20 09:02 Temperature 98.5 F Pulse Rate 82 Respiratory 18 Rate Blood Pressure 158/101 O2 Sat by Pulse 100 Oximetry - Lab 01/28/20 05:00 01/28/20 05:00 Most recent lab results Calcium 7.1 mg/dL (8.4-10.2) L 01/28/20 05:00 Medications & Allergies - Medications Allergies/Adverse Reactions: Allergies naproxen [From Naprosyn] Allergy (Verified 01/25/20 23:41) Hives Home Medications: Home Medications Medication Instructions Recorded Confirmed Last Taken Type Calcium Citrate/Vitamin D3 1 tab PO DAILY 01/26/20 01/26/20 01/25/20 History [Calcitrate + Vit D Caplet] Furosemide [Lasix TAB] 40 mg PO QDAY 01/26/20 01/26/20 01/25/20 History Hydroxychloroquine [Plaquenil] 200 mg PO QDAY 01/26/20 01/26/20 01/25/20 History Multivit-Min/Iron/Vitamin K [Adult 1 each PO DAILY 01/26/20 01/26/20 01/25/20 History Multivitamin-Iron Tablet] NIFEdipine [Nifedipine ER] 60 mg PO DAILY 01/26/20 01/26/20 01/25/20 History azaTHIOprine [Imuran] 50 mg PO BID 01/26/20 01/26/20 01/25/20 History Active Medications: Generic Name Dose Route Start Last Admin Trade Name Freq PRN Reason Stop Dose Admin Acetaminophen 650 mg 01/26/20 09:50 Acetaminophen 325 Mg Tab PO Q4H PRN Pain MILD(1-3)/Fever >100.5/JIM Al Hydrox/Mg Hydrox/Simethicone 30 ml 01/26/20 09:50 Alum-Mag Hydroxide-Simethicone [id number]/5ml Oral Liqd 30 Ml PO Q4H PRN Indigestion Albuterol 2.5 mg 01/26/20 09:50 Albuterol 2.5 Mg/3 Ml Nebu IH Q4HRT PRN Shortness Of Breath Azathioprine 50 mg 01/26/20 11:00 01/29/20 09:23 Azathioprine 50 Mg Tab PO Not Given BID GIA Calcium Citrate 1 each 01/26/20 11:00 01/29/20 09:19 Calcium Citrate/Vitamin D3 315 Mg/250 Units Tab PO 1 each DAILY GIA Administration Epoetin Ricardo 10,000 unit 01/26/20 09:00 Epoetin Ricardo 10,000 Unit/1 Ml Inj IV VINICIUS PRN hemodialysis Famotidine 20 mg 01/26/20 11:00 01/29/20 09:18 Famotidine 20 Mg Tab PO 20 mg DAILY GIA Administration Ferrous Sulfate 325 mg 01/27/20 14:00 01/29/20 09:18 Ferrous Sulfate 325 Mg Tab PO 325 mg TID GIA Administration Furosemide 40 mg 01/26/20 11:00 01/29/20 09:18 Furosemide 40 Mg Tab PO 40 mg QDAY GIA Administration Hydralazine HCl 25 mg 01/29/20 09:00 01/29/20 09:19 Hydralazine 25 Mg Tab PO 25 mg Q8HR GIA Administration Hydroxychloroquine Sulfate 200 mg 01/26/20 11:00 01/29/20 09:18 Hydroxychloroquine 200 Mg Tab PO 200 mg QDAY GIA Administration Sodium Chloride 100 mls @ 999 mls/hr 01/29/20 08:00 Nacl 0.9% IV VINICIUS PRN Hypotension Labetalol HCl 10 mg 01/26/20 04:52 01/29/20 04:25 Labetalol 20 Mg/4 Ml Inj IV 10 mg Q6H PRN Administration Hypertension Multivitamins/Minerals 1 each 01/26/20 11:00 01/29/20 09:19 Multivitamins,Ther W-Minerals Tab PO 1 each QDAY GIA Administration Naloxone HCl 0.1 mg 01/26/20 09:50 Naloxone 0.4 Mg/1 Ml Inj IV Q2MIN PRN Res Rate </= 8 or 02 SAT < 92% Nifedipine 60 mg 01/26/20 11:00 01/29/20 09:18 Nifedipine Xl 60 Mg Tab PO 60 mg QDAY GIA Administration Ondansetron HCl 4 mg 01/26/20 09:50 01/27/20 12:30 Ondansetron 4 Mg/2 Ml Inj IV 4 mg Q4H PRN Administration Nausea And Vomiting Oxycodone/Acetaminophen 1 tab 01/26/20 09:50 01/27/20 23:38 Oxycodone /Acetaminophen 5-325mg Tab PO 1 tab Q6H PRN Administration Pain, Moderate (4-6)
[2020-01-29] MEDS: ONDANSETRON 4 MG/2 ML INJ IV PRN (11:45)
[2020-01-29 22:05] LABS: Basophils % (Auto) 0.7 % (0.0-1.8); Eosinophils # (Auto) 0.1 K/mm3 (0.0-0.4); Eosinophils % (Auto) 1.3 % (0.0-4.3); Hematocrit 23.1 % (30.3-42.9); Hemoglobin 7.8 gm/dl (10.1-14.3); Lymphocytes # (Auto) 1.2 K/mm3 (1.2-5.4); Mean Corpuscular HGB Conc 34 % (30-34); Mean Corpuscular Volume 88 fl (79-97); Monocytes # (Auto) 0.3 K/mm3 (0.0-0.8); Monocytes % (Auto) 8.4 % (0.0-7.3); Platelet Count 120 K/mm3 (140-440); Red Blood Count 2.63 M/mm3 (3.65-5.03)
[2020-01-30] MEDS: oxyCODONE /ACETAMINOPHEN 5-325MG TAB PO PRN (01:49)
[2020-01-30] MEDS: azaTHIOprine 50 MG TAB PO SCH ×2 (02:54→11:18)
[2020-01-30] MEDS: NIFEdipine XL 60 MG TAB PO SCH (11:16)
[2020-01-30] MEDS: HYDROXYCHLOROQUINE 200 MG TAB PO SCH (11:17)
[2020-01-30] MEDS: hydrALAZINE 25 MG TAB PO SCH ×4 (11:17→21:40)
[2020-01-30] MEDS: FAMOTIDINE 20 MG TAB PO SCH (11:17)
[2020-01-30] MEDS: FUROSEMIDE 40 MG TAB PO SCH (11:17)
[2020-01-30] MEDS: FERROUS SULFATE 325 MG TAB PO SCH ×3 (11:17→21:40)
[2020-01-30] MEDS: MULTIVITAMINS,THER W-MINERALS TAB PO SCH (11:17)
[2020-01-30] MEDS: CALCIUM CITRATE/VITAMIN D3 315 MG/250 UNITS TAB PO SCH (11:18)
--- NOTE | 2020-01-30 11:33 | Progress Note ---
Assessment and Plan - Patient Problems (1) CKD (chronic kidney disease) stage V requiring chronic dialysis Current Visit: Yes Status: Chronic Plan to address problem: Patient has been started on dialysis. Outpatient dialysis at [facility] dialysis is being arranged. (2) Anemia in CKD (chronic kidney disease) Current Visit: Yes Status: Acute Qualifiers: Chronic kidney disease stage: on chronic dialysis Qualified Code(s): N18.6 - End stage renal disease; D63.1 - Anemia in chronic kidney disease; Z99.2 - Dependence on renal dialysis Plan to address problem: Give erythropoietin on dialysis. Follow-up hemoglobin (3) Hypertensive chronic kidney disease with stage 5 chronic kidney disease or end stage renal disease Current Visit: Yes Status: Acute Plan to address problem: Follow-up blood pressure on current medications (4) Lupus nephritis Current Visit: Yes Status: Chronic Plan to address problem: Continue azathioprine Subjective Date of service: 01/30/20 Principal diagnosis: ESRD Interval history: Patient seen sitting up in bed. She has no complaints. She wants to go home. Objective - Exam Narrative Exam: Young -[place] female lying in bed in no acute distress HEENT: NCAT, pink oral mucous membrane Neck: Supple, no venous distention CVS: S1S2 RRR with no murmur, rub or gallop Chest: Clear to auscultation Abdomen: Protuberant, soft, nontender, no organomegaly, bowel sounds are present Extremities: No edema Neuro: Awake, alert no focal deficits - Vital Signs Vital signs: Vital Signs - 12hr 01/30/20 01/30/20 01/30/20 01:50 01:54 04:28 Temperature 98.1 F 98.3 F Pulse Rate 93 H 90 Respiratory 20 14 Rate Blood Pressure 164/111 163/112 Blood Pressure 164/111 [Right] O2 Sat by Pulse 99 96 Oximetry 01/30/20 07:58 Temperature 98.2 F Pulse Rate 81 Respiratory 18 Rate Blood Pressure 167/118 Blood Pressure [Right] O2 Sat by Pulse 98 Oximetry - Lab 01/29/20 20:38 01/28/20 05:00 Most recent lab results Calcium 7.1 mg/dL (8.4-10.2) L 01/28/20 05:00 Medications & Allergies - Medications Allergies/Adverse Reactions: Allergies naproxen [From Naprosyn] Allergy (Verified 01/25/20 23:41) Hives Home Medications: Home Medications Medication Instructions Recorded Confirmed Last Taken Type Calcium Citrate/Vitamin D3 1 tab PO DAILY 01/26/20 01/26/20 01/25/20 History [Calcitrate + Vit D Caplet] Furosemide [Lasix TAB] 40 mg PO QDAY 01/26/20 01/26/20 01/25/20 History Hydroxychloroquine [Plaquenil] 200 mg PO QDAY 01/26/20 01/26/20 01/25/20 History Multivit-Min/Iron/Vitamin K [Adult 1 each PO DAILY 01/26/20 01/26/20 01/25/20 History Multivitamin-Iron Tablet] NIFEdipine [Nifedipine ER] 60 mg PO DAILY 01/26/20 01/26/20 01/25/20 History azaTHIOprine [Imuran] 50 mg PO BID 01/26/20 01/26/20 01/25/20 History Active Medications: Generic Name Dose Route Start Last Admin Trade Name Freq PRN Reason Stop Dose Admin Acetaminophen 650 mg 01/26/20 09:50 Acetaminophen 325 Mg Tab PO Q4H PRN Pain MILD(1-3)/Fever >100.5/JIM Al Hydrox/Mg Hydrox/Simethicone 30 ml 01/26/20 09:50 Alum-Mag Hydroxide-Simethicone [id number]/5ml Oral Liqd 30 Ml PO Q4H PRN Indigestion Albuterol 2.5 mg 01/26/20 09:50 Albuterol 2.5 Mg/3 Ml Nebu IH Q4HRT PRN Shortness Of Breath Azathioprine 50 mg 01/26/20 11:00 01/30/20 11:18 Azathioprine 50 Mg Tab PO 50 mg BID GIA Administration Calcium Citrate 1 each 01/26/20 11:00 01/30/20 11:18 Calcium Citrate/Vitamin D3 315 Mg/250 Units Tab PO 1 each DAILY GIA Administration Epoetin Ricardo 10,000 unit 01/26/20 09:00 Epoetin Ricardo 10,000 Unit/1 Ml Inj IV VINICIUS PRN hemodialysis Famotidine 20 mg 01/26/20 11:00 01/30/20 11:17 Famotidine 20 Mg Tab PO 20 mg DAILY GIA Administration Ferrous Sulfate 325 mg 01/27/20 14:00 01/30/20 11:17 Ferrous Sulfate 325 Mg Tab PO 325 mg TID GIA Administration Furosemide 40 mg 01/26/20 11:00 01/30/20 11:17 Furosemide 40 Mg Tab PO 40 mg QDAY GIA Administration Hydralazine HCl 50 mg 01/30/20 08:00 01/30/20 11:17 Hydralazine 25 Mg Tab PO 50 mg Q8HR GIA Administration Hydroxychloroquine Sulfate 200 mg 01/26/20 11:00 01/30/20 11:17 Hydroxychloroquine 200 Mg Tab PO 200 mg QDAY GIA Administration Sodium Chloride 100 mls @ 999 mls/hr 01/29/20 08:00 Nacl 0.9% IV VINICIUS PRN Hypotension Labetalol HCl 10 mg 01/26/20 04:52 01/30/20 01:50 Labetalol 20 Mg/4 Ml Inj IV 10 mg Q6H PRN Administration Hypertension Multivitamins/Minerals 1 each 01/26/20 11:00 01/30/20 11:17 Multivitamins,Ther W-Minerals Tab PO 1 each QDAY GIA Administration Naloxone HCl 0.1 mg 01/26/20 09:50 Naloxone 0.4 Mg/1 Ml Inj IV Q2MIN PRN Res Rate </= 8 or 02 SAT < 92% Nifedipine 60 mg 01/26/20 11:00 01/30/20 11:16 Nifedipine Xl 60 Mg Tab PO 60 mg QDAY GIA Administration Ondansetron HCl 4 mg 01/26/20 09:50 01/29/20 11:45 Ondansetron 4 Mg/2 Ml Inj IV 4 mg Q4H PRN Administration Nausea And Vomiting Oxycodone/Acetaminophen 1 tab 01/26/20 09:50 01/30/20 01:49 Oxycodone /Acetaminophen 5-325mg Tab PO 1 tab Q6H PRN Administration Pain, Moderate (4-6)
--- NOTE | 2020-01-30 16:20 | Progress Note ---
Subjective Date of service: 01/30/20 Principal diagnosis: ESRD Interval history: Patient is a 34-year-old female with history of lupus with with nephritic complications and chronic renal failure as a result with recent AV fistula placement last August intermittent nausea vomiting who presents to the hospital on advice of her bone cooking operator due to progressive worsening weakness, shortness of breath fatigue and persistent nausea vomiting with poor p.o. tolerance. Patient who is normally followed at [facility] established with a bone cooking operator in the community states that her symptoms has been ongoing and progressively gotten getting worse with now abdominal discomfort and lower extremity edema on seeing her bone cooking operator she was recommended to begin dialysis and she presented to the hospital for further evaluation and initiation of dialysis. While she does report a recent menstrual cycle she denies any heavy vaginal bleed denies any melena or hematochezia. She was noted to be anemic on initial labs with a hemoglobin of 6.6. Chest x-ray: IMPRESSION: 1. Borderline heart size. The lungs are clear without radiographic evidence for pulmonary edema 01/26: Per Nephrology She was being referred to for [facility]. Despite Blood transfusion patient still with Low Blood count. Will check stool for occult blood. Will start on Iron replacement,Continue to follow with [facility] on discharge. Request GI eval 01/27: Discussed with endoscopy specialty technician and also bone cooking operator. Patient got an additional unit of blood no further patient's gastrointestinal Intervention needed, Will await Case management to ensure HD chair time by AM to discharge. 01/28: Patient seen and examined resting comfortably no new complaints. Covid test ordered for dialysis placement. No new issues reported today. Once outpatient HD is arranged patient can be discharged. Mild elevated blood pressure adjusted blood pressure medications and plan advised with patient. 01/29 patient is alert and oriented and sitting up in the chair. She offers no specific complaints. Denies any fever or chills. Denies chest pain or shortness of breath. Nephrology note reviewed. Lab results reviewed CKD stage V requiring Dialysis Nephrology note reviewed Lupus nephritis Diagnosed in 2016 Continue present medications including azathioprine and hydroxychloroquine Hypertensive urgency secondary to underlying renal disease Poorly controlled Has a high diastolic blood pressure Continue nifedipine and hydralazine We will start the patient on losartan Discussed with nephrology Dr. Sanchez He is okay with starting the patient on ARB Leukopenia/pancytopenia Most likely secondary to her lupus Normocytic anemia Status post PRBC transfusion Intractable nausea vomiting possible underlining gastro enteritis versus uremic syndrome Improved Objective - Constitutional Vitals: Vital Signs - 12hr 01/30/20 01/30/20 04:28 07:58 Temperature 98.3 F 98.2 F Pulse Rate 90 81 Respiratory 14 18 Rate Blood Pressure 163/112 167/118 O2 Sat by Pulse 96 98 Oximetry General appearance: Present: no acute distress, well-nourished - EENT Eyes: PERRL, EOM intact ENT: hearing intact, clear oral mucosa - Neck Neck: supple, normal ROM - Respiratory Respiratory effort: normal Respiratory: bilateral: CTA - Cardiovascular Rhythm: regular Heart Sounds: Present: S1 & S2 Extremities: No edema - Gastrointestinal General gastrointestinal: Present: soft, non-tender Rectal Exam: deferred - Genitourinary Female genitourinary: deferred - Musculoskeletal Musculoskeletal: strength equal bilaterally - Neurologic Neurologic: CNII-XII intact - Psychiatric Psychiatric: appropriate mood/affect - Labs CBC & Chem 7: 01/29/20 20:38 01/28/20 05:00 Labs: Abnormal lab results 01/29/20 Range/Units 20:38 WBC 4.0 L (4.5-11.0) K/mm3 RBC 2.63 L (3.65-5.03) M/mm3 Hgb 7.8 L (10.1-14.3) gm/dl Hct 23.1 L (30.3-42.9) % RDW 17.0 H (13.2-15.2) % Plt Count 120 L (140-440) K/mm3 Day % (Auto) 8.4 H (0.0-7.3) %
[2020-01-30] MEDS ORDERED: LOSARTAN 50 MG TAB PO SCH (17:00)
[2020-01-31] MEDS: azaTHIOprine 50 MG TAB PO SCH ×2 (00:44→14:58)
[2020-01-31] MEDS: hydrALAZINE 25 MG TAB PO SCH ×2 (05:24→14:57)
[2020-01-31 05:31] LABS: Hematocrit 21.5 % (30.3-42.9); Hemoglobin 7.2 gm/dl (10.1-14.3); Mean Corpuscular HGB Conc 34 % (30-34); Mean Corpuscular Volume 88 fl (79-97); Platelet Count 147 K/mm3 (140-440); Red Blood Count 2.43 M/mm3 (3.65-5.03); Red Cell Distribution Width 16.7 % (13.2-15.2)
[2020-01-31] MEDS ORDERED: LOSARTAN 50 MG TAB PO SCH (10:00)
[2020-01-31] MEDS ORDERED: METOPROLOL TARTRATE 50 MG TAB PO SCH (10:00)
[2020-01-31 10:42] VITALS: BP 145/98
--- NOTE | 2020-01-31 11:02 | Progress Note ---
Assessment and Plan - Patient Problems (1) CKD (chronic kidney disease) stage V requiring chronic dialysis Current Visit: Yes Status: Chronic Plan to address problem: Patient has been started on dialysis. Outpatient dialysis at [facility] dialysis has being arranged. Okay to discharge from renal perspective (2) Anemia in CKD (chronic kidney disease) Current Visit: Yes Status: Acute Qualifiers: Qualified Code(s): N18.6 - End stage renal disease; D63.1 - Anemia in chronic kidney disease; Z99.2 - Dependence on renal dialysis Plan to address problem: Give erythropoietin on dialysis. Follow-up hemoglobin (3) Hypertensive chronic kidney disease with stage 5 chronic kidney disease or end stage renal disease Current Visit: Yes Status: Acute Plan to address problem: Follow-up blood pressure on current medications (4) Lupus nephritis Current Visit: Yes Status: Chronic Plan to address problem: Continue azathioprine Subjective Date of service: 01/31/20 Principal diagnosis: ESRD Interval history: Patient seen sitting up in bed. She has no complaints. She wants to go home. Objective - Exam Narrative Exam: Young -[place] female lying in bed in no acute distress HEENT: NCAT, pink oral mucous membrane Neck: Supple, no venous distention CVS: S1S2 RRR with no murmur, rub or gallop Chest: Clear to auscultation Abdomen: Protuberant, soft, nontender, no organomegaly, bowel sounds are present Extremities: No edema Neuro: Awake, alert no focal deficits - Vital Signs Vital signs: Vital Signs - 12hr 01/31/20 01/31/20 01/31/20 00:41 05:08 09:22 Temperature 98.6 F 98.3 F 98.5 F Pulse Rate 104 H 95 H 103 H Respiratory 18 18 18 Rate Blood Pressure 146/100 151/107 145/98 O2 Sat by Pulse 96 98 100 Oximetry - Lab 01/31/20 04:39 01/28/20 05:00 Most recent lab results Calcium 7.1 mg/dL (8.4-10.2) L 01/28/20 05:00 Medications & Allergies - Medications Allergies/Adverse Reactions: Allergies naproxen [From Naprosyn] Allergy (Verified 01/25/20 23:41) Hives Home Medications: Home Medications Medication Instructions Recorded Confirmed Last Taken Type Calcium Citrate/Vitamin D3 1 tab PO DAILY 01/26/20 01/26/2001/24/20 History [Calcitrate + Vit D Caplet] Furosemide [Lasix TAB] 40 mg PO QDAY 01/26/20 01/26/20 01/25/20 History Hydroxychloroquine [Plaquenil] 200 mg PO QDAY 01/26/20 01/26/20 01/25/20 History Multivit-Min/Iron/Vitamin K [Adult 1 each PO DAILY 01/26/20 01/26/20 01/25/20 History Multivitamin-Iron Tablet] NIFEdipine [Nifedipine ER] 60 mg PO DAILY 01/26/20 01/26/20 01/25/20 History azaTHIOprine [Imuran] 50 mg PO BID 01/26/20 01/26/20 01/25/20 History Active Medications: Generic Name Dose Route Start Last Admin Trade Name Freq PRN Reason Stop Dose Admin Acetaminophen 650 mg 01/26/20 09:50 Acetaminophen 325 Mg Tab PO Q4H PRN Pain MILD(1-3)/Fever >100.5/JIM Al Hydrox/Mg Hydrox/Simethicone 30 ml 01/26/20 09:50 Alum-Mag Hydroxide-Simethicone [id number]/5ml Oral Liqd 30 Ml PO Q4H PRN Indigestion Albuterol 2.5 mg 01/26/20 09:50 Albuterol 2.5 Mg/3 Ml Nebu IH Q4HRT PRN Shortness Of Breath Azathioprine 50 mg 01/26/20 11:00 01/31/20 00:44 Azathioprine 50 Mg Tab PO 50 mg BID GIA Administration Calcium Citrate 1 each 01/26/20 11:00 01/30/20 11:18 Calcium Citrate/Vitamin D3 315 Mg/250 Units Tab PO 1 each DAILY GIA Administration Epoetin Ricardo 10,000 unit 01/26/20 09:00 Epoetin Ricardo 10,000 Unit/1 Ml Inj IV VINICIUS PRN hemodialysis Famotidine 20 mg 01/26/20 11:00 01/30/20 11:17 Famotidine 20 Mg Tab PO 20 mg DAILY GIA Administration Ferrous Sulfate 325 mg 01/27/20 14:00 01/30/20 21:40 Ferrous Sulfate 325 Mg Tab PO 325 mg TID GIA Administration Furosemide 40 mg 01/26/20 11:00 01/30/20 11:17 Furosemide 40 Mg Tab PO 40 mg QDAY GIA Administration Hydralazine HCl 50 mg 01/30/20 08:00 01/31/20 05:24 Hydralazine 25 Mg Tab PO 50 mg Q8HR GIA Administration Hydroxychloroquine Sulfate 200 mg 01/26/20 11:00 01/30/20 11:17 Hydroxychloroquine 200 Mg Tab PO 200 mg QDAY GIA Administration Sodium Chloride 100 mls @ 999 mls/hr 01/29/20 08:00 Nacl 0.9% IV VINICIUS PRN Hypotension Labetalol HCl 10 mg 01/26/20 04:52 01/30/20 01:50 Labetalol 20 Mg/4 Ml Inj IV 10 mg Q6H PRN Administration Hypertension Losartan Potassium 100 mg 01/31/20 10:00 Losartan 50 Mg Tab PO QDAY [facility] Metoprolol Tartrate 50 mg 01/31/20 10:00 Metoprolol Tartrate 50 Mg Tab PO 01/31/20 13:00 ONCE GIA Multivitamins/Minerals 1 each 01/26/20 11:00 01/30/20 11:17 Multivitamins,Ther W-Minerals Tab PO 1 each QDAY [facility] Administration Naloxone HCl 0.1 mg 01/26/20 09:50 Naloxone 0.4 Mg/1 Ml Inj IV Q2MIN PRN Res Rate </= 8 or 02 SAT < 92% Nifedipine 60 mg 01/26/20 11:00 01/30/20 11:16 Nifedipine Xl 60 Mg Tab PO 60 mg QDAY GIA Administration Ondansetron HCl 4 mg 01/26/20 09:50 01/29/20 11:45 Ondansetron 4 Mg/2 Ml Inj IV 4 mg Q4H PRN Administration Nausea And Vomiting Oxycodone/Acetaminophen 1 tab 01/26/20 09:50 01/30/20 01:49 Oxycodone /Acetaminophen 5-325mg Tab PO 1 tab Q6H PRN Administration Pain, Moderate (4-6)
--- NOTE | 2020-01-31 11:06 | Discharge Summary ---
Providers - Providers Date of Admission: 01/26/20 09:35 Date of discharge: 01/31/20 Attending physician: EMILY HARVEY 01/25/20 23:19 Consult to Physician [CONS] Urgent Comment: Dr. Rivera spoke to Dr. Sanchez @ [phone] Consulting Provider: AUTUMN SANCHEZ Physician Instructions: Reason For Exam: needs dialysis 01/26/20 Consult to Case Management [CONS] Routine Services Needed at Discharge: Checker Stocker Notified:: no Additional Physician Instructions: outpatient HD at [facility] dialysis 01/27/20 09:28 Consult to Physician [CONS] Routine Comment: Consulting Provider: SHAYNA IRVIN Physician Instructions: Reason For Exam: GI BLEED? Primary care physician: SCREEN PRINTING SUPERVISOR Hospitalization Condition: Stable Hospital course: Patient is a 34-year-old female with history of lupus with with nephritic complications and chronic renal failure as a result with recent AV fistula placement last August intermittent nausea vomiting who presents to the hospital on advice of her talend developer due to progressive worsening weakness, shortness of breath fatigue and persistent nausea vomiting with poor p.o. tolerance. Patient who is normally followed at [facility] established with a talend developer in the community states that her symptoms has been ongoing and progressively gotten getting worse with now abdominal discomfort and lower extremity edema on seeing her talend developer she was recommended to begin dialysis and she presented to the hospital for further evaluation and initiation of dialysis. While she does report a recent menstrual cycle she denies any heavy vaginal bleed denies any melena or hematochezia. She was noted to be anemic on initial labs with a hemoglobin of 6.6. Chest x-ray: IMPRESSION: 1. Borderline heart size. The lungs are clear without radiographic evidence for pulmonary edema 01/26: Per Nephrology She was being referred to for [facility] on [facility]. Despite Blood transfusion patient still with Low Blood count. Will check stool for occult blood. Will start on Iron replacement,Continue to follow with Granular Operator on discharge. Request GI eval 01/27: Discussed with sand mill operator facing sand and also talend developer. Patient got an additional unit of blood no further patient's gastrointestinal Intervention needed, Will await Case management to ensure HD chair time by AM to discharge. 01/28: Patient seen and examined resting comfortably no new complaints. Covid test ordered for dialysis placement. No new issues reported today. Once o utpatient HD is arranged patient can be discharged. Mild elevated blood pressure adjusted blood pressure medications and plan advised with patient. 01/29 patient is alert and oriented and sitting up in the chair. She offers no specific complaints. Denies any fever or chills. Denies chest pain or shortness of breath. Nephrology note reviewed. Lab results reviewed 01/30 patient is doing well, she offers no complaints. She wants to go home. Blood pressure is well controlled. She is medically stable for discharge. Continue outpatient hemodialysis and follow-up with nephrology CKD stage V requiring Dialysis Nephrology note reviewed Lupus nephritis Diagnosed in 2016 Continue present medications including azathioprine and hydroxychloroquine Hypertensive urgency secondary to underlying renal disease Well-controlled Continue nifedipine and hydralazine Increase losartan 100 mg Discussed with nephrology Dr. Sanchez He is okay with starting the patient on ARB Leukopenia/pancytopenia Most likely secondary to her lupus Normocytic anemia Status post PRBC transfusion Intractable nausea vomiting possible underlining gastro enteritis versus uremic syndrome Improved Disposition: DC-30 STILL A PATIENT Time spent for discharge: 38 min Core Measure Documentation - Palliative Care Palliative Care/ Comfort Measures: Not Applicable - Core Measures Any of the following diagnoses?: none Exam - Constitutional Vitals: Temp Pulse Resp BP Pulse Ox 98.5 F 103 H 18 145/98 100 01/31/20 09:22 01/31/20 09:22 01/31/20 09:22 01/31/20 09:22 01/31/20 09:22 General appearance: Present: no acute distress, well-nourished - EENT Eyes: Present: PERRL, EOM intact ENT: hearing intact, clear oral mucosa - Neck Neck: Present: supple, normal ROM - Respiratory Respiratory effort: normal Respiratory: bilateral: CTA - Cardiovascular Rhythm: regular Heart Sounds: Present: S1 & S2 - Extremities Extremities: No edema - Abdominal General gastrointestinal: Present: soft, non-tender Female genitourinary: Present: deferred - Rectal Rectal Exam: deferred - Integumentary Integumentary: Present: clear - Musculoskeletal Musculoskeletal: strength equal bilaterally - Psychiatric Psychiatric: appropriate mood/affect - Neurologic Neurologic: no focal deficits Plan Activity: advance as tolerated Weight Bearing Status: Full Weight Bearing Diet: regular, low fat, low cholesterol, low salt Special Instructions: restrict fluid intake to (1200 mL/day) Follow up with: PRIMARY CARE, [Primary Care Provider] - 3-5 Days AUTUMN SANCHEZ MD [Staff Physician] - 7 Days Prescriptions: hydrALAZINE [Apresoline TAB] 50 mg PO Q8HR 30 Days #90 tab hydrALAZINE [Apresoline TAB] 50 mg PO Q8HR #90 tablet Losartan [Cozaar] 100 mg PO QDAY #30 tablet Furosemide [Lasix TAB] 40 mg PO QDAY #30 tablet
[2020-01-31] MEDS: FAMOTIDINE 20 MG TAB PO SCH (14:55)
[2020-01-31] MEDS: MULTIVITAMINS,THER W-MINERALS TAB PO SCH (14:56)
[2020-01-31] MEDS: FUROSEMIDE 40 MG TAB PO SCH (14:57)
[2020-01-31] MEDS: HYDROXYCHLOROQUINE 200 MG TAB PO SCH (14:57)
[2020-01-31] MEDS: NIFEdipine XL 60 MG TAB PO SCH (14:58)
[2020-01-31] MEDS: CALCIUM CITRATE/VITAMIN D3 315 MG/250 UNITS TAB PO SCH (14:58)
== END 2020-01-31 15:54 | disposition home or self-care (01) | DRG 682 ==
LOC: ED 17:58 → 3A 23:45 → 4A 01-26 01:05 → OBSVTOIN 01-26 09:35
PROVIDERS: ADMIT Internal Medicine Geriatric Medicine; ATTEND Internal Medicine
PROC: 30233N1 Transfusion of Nonautologous Red Blood Cells into Peripheral Vein, Percutaneous Approach (ICD-10-PCS; principal; 2020-01-26)
PROC: 5A1D70Z Performance of Urinary Filtration, Intermittent, Less than 6 Hours Per Day (ICD-10-PCS; 2020-01-26)
PROC: 5A1D70Z Performance of Urinary Filtration, Intermittent, Less than 6 Hours Per Day (ICD-10-PCS; 2020-01-27)
PROC: 5A1D70Z Performance of Urinary Filtration, Intermittent, Less than 6 Hours Per Day (ICD-10-PCS; 2020-01-29)
DX: I12.0 Hypertensive chronic kidney disease with stage 5 chronic kidney disease or end stage renal disease (principal); N18.6 End stage renal disease; N17.9 Acute kidney failure, unspecified; E87.2 Acidosis; D61.818 Other pancytopenia; M32.9 Systemic lupus erythematosus, unspecified; I16.0 Hypertensive urgency; K52.9 Noninfective gastroenteritis and colitis, unspecified; D63.1 Anemia in chronic kidney disease; Z20.828 Contact with and (suspected) exposure to other viral communicable diseases; Z88.8 Allergy status to other drugs, medicaments and biological substances; Z99.2 Dependence on renal dialysis; Z79.899 Other long term (current) drug therapy
CPT/HCPCS: 36415; 36430; 71045; 80048; 80053; 80074; 81001; 81025; 82271; 83690; 84703; 85014; 85018; 85025; 85027; 86706; 86850; 86900; 86901; 86920; 90471; 96374; 96375; 96376; G0378; J2405; J7040; J7500; P9016; U0003

== ENCOUNTER 2020-03-02 11:17 | Observation (INO) | payer MEDICAID ==
--- NOTE | 2020-03-02 12:37 | Event Note ---
ED Screening Note Date of service: 03/02/20 Time: 12:35 ED Screening Note: 34-year-old -[place] female presents to the emergency room states that she has missed 2 weeks of dialysis due to her left arm fistular being clogged. Patient did not follow-up with her real property evaluator. She denies any shortness of breath no chest pain no abdominal pain no vomiting admits to mild dizziness and headache. Last negative Covid test was January. She is followed by [facility] This initial assessment/diagnostic orders/clinical plan/treatment(s) is/are subject to change based on patients health status, clinical progression and re- assessment by fellow clinical providers in the ED. Further treatment and workup at subsequent clinical providers discretion. Patient/guardian urged not to elope from the ED as their condition may be serious if not clinically assessed and managed. Initial orders include:
--- NOTE | 2020-03-02 13:07 | Emergency Department Report ---
HPI - General Chief Complaint: Medical Clearance Time Seen by Provider: 03/02/20 13:00 - HPI HPI: This is a 34-year-old -Syrian female who presents to the emergency department with the complaint of missing her last 2 weeks of dialysis. She says that the last time that she was dialyzed "the nurse infiltrated a vein or something in my arm" and since that time she says that it was swollen and painful. Because of these symptoms the patient did not go for dialysis. It is grooving lathe tender to touch, but she says that the pain has decreased and the swelling has resolved. She went to try to get dialysis today but was told that she has missed too many dialysis sessions and therefore needs medical clearance to get dialyzed. Her gauge inspector is Dr. Sanchez. She normally gets dialysis on Wednesday//Wednesday. No recent travel or sick contacts at home. She denies any fever, chest pain, shortness of breath, lower extremity swelling. ED Past Medical Hx - Past Medical History Previous Medical History?: Yes Hx Hypertension: Yes Hx Renal Disease: Yes (HD on -W-) - Surgical History Past Surgical History?: Yes Additional Surgical History: AV fistula left upper arm. - Social History Smoking Status: Never Smoker Substance Use Type: None - Medications Home Medications: Home Medications Medication Instructions Recorded Confirmed Last Taken Type Calcium Citrate/Vitamin D3 1 tab PO DAILY 01/26/20 01/26/20 01/25/20 History [Calcitrate + Vit D Caplet] Furosemide [Lasix TAB] 40 mg PO QDAY 01/26/20 01/26/20 01/25/20 History Hydroxychloroquine [Plaquenil] 200 mg PO QDAY 01/26/20 01/26/20 01/25/20 History Multivit-Min/Iron/Vitamin K [Adult 1 each PO DAILY 01/26/20 01/26/20 01/25/20 History Multivitamin-Iron Tablet] NIFEdipine [Nifedipine ER] 60 mg PO DAILY 01/26/20 01/26/20 01/25/20 History azaTHIOprine [Imuran] 50 mg PO BID 01/26/20 01/26/20 01/25/20 History Famotidine [Pepcid] 20 mg PO DAILY tablet 01/31/20 Unknown Rx Ferrous Sulfate [Feosol 325 MG tab] 325 mg PO TID tablet 01/31/20 Unknown Rx Furosemide [Lasix TAB] 40 mg PO QDAY #30 tablet 01/31/20 Unknown Rx Losartan [Cozaar] 100 mg PO QDAY #30 tablet 01/31/20 Unknown Rx hydrALAZINE [Apresoline TAB] 50 mg PO Q8HR #90 tablet 01/31/20 Unknown Rx hydrALAZINE [Apresoline TAB] 50 mg PO Q8HR 30 Days #90 tab 01/31/20 Unknown Rx ED Review of Systems ROS: Stated complaint: MISSED DIALYSIS Other details as noted in HPI Comment: All other systems reviewed and negative Constitutional: denies: chills, fever Eyes: denies: eye pain, vision change ENT: denies: ear pain, throat pain Respiratory: denies: cough, shortness of breath Cardiovascular: denies: chest pain, palpitations Gastrointestinal: denies: abdominal pain, vomiting Genitourinary: denies: dysuria, discharge Musculoskeletal: myalgia. denies: back pain Skin: denies: rash, lesions Neurological: denies: numbness, paresthesias Physical Exam - Physical Exam Vital Signs: Vital Signs 03/02/20 11:47 Temperature 97.8 F Pulse Rate 111 H Respiratory 20 Rate Blood Pressure 158/109 [Right] O2 Sat by Pulse 100 Oximetry Physical Exam: GENERAL: The patient is well-developed well-nourished. HENT: Normocephalic. Atraumatic. Patient has moist mucous membranes. EYES: Extraocular motions are intact. NECK: Supple. Trachea is midline. CHEST/LUNGS: Clear to auscultation. There is no respiratory distress noted. HEART/CARDIOVASCULAR: Regular. There is mild tachycardia. There is no murmur. ABDOMEN: Abdomen is soft, nontender. Patient has normal bowel sounds. There is no abdominal distention. SKIN: Skin is warm and dry. NEURO: The patient is awake, alert, and oriented. The patient is cooperative. The patient has no focal neurologic deficits. Normal speech. MUSCULOSKELETAL: There is no tenderness or deformity. There is no limitation ra nge of motion. The left upper extremity fistula has a palpable thrill. ED Course Vital Signs 03/02/20 11:47 Temperature 97.8 F Pulse Rate 111 H Respiratory 20 Rate Blood Pressure 158/109 [Right] O2 Sat by Pulse 100 Oximetry - Consultations Consultation #1: 03/02/20 15:[address] Hall, gauge inspector on for Dr. Sanchez, and he has agreed to consult on the patient and will attempt to get the patient dialyzed this afternoon. ED Medical Decision Making - Lab Data Result diagrams: 03/02/20 13:14 03/02/20 13:14 Lab Results 03/02/20 03/02/20 Range/Units 13:14 13:14 WBC 2.9 L (4.5-11.0) K/mm3 RBC 3.19 L (3.65-5.03) M/mm3 Hgb 9.5 L (10.1-14.3) gm/dl Hct 28.8 L (30.3-42.9) % MCV 90 (79-97) fl MCH 30 (28-32) pg MCHC 33 (30-34) % RDW 17.7 H (13.2-15.2) % Plt Count 268 (140-440) K/mm3 Lymph % (Auto) 44.4 H (13.4-35.0) % [place] % (Auto) 6.4 (0.0-7.3) % Eos % (Auto) 0.9 (0.0-4.3) % Baso % (Auto) Supervisor Paste Mixing Lymph # (Auto) 1.3 (1.2-5.4) K/mm3 [place] # (Auto) 0.2 (0.0-0.8) K/mm3 Eos # (Auto) 0.0 (0.0-0.4) K/mm3 Baso # (Auto) 0.1 (0.0-0.1) K/mm3 Seg Neutrophils % 46.0 (40.0-70.0) % Seg Neutrophils # 1.3 L (1.8-7.7) K/mm3 Sodium 137 (137-145) mmol/L Potassium 5.6 H (3.6-5.0) mmol/L Chloride 99.3 (98-107) mmol/L Carbon Dioxide 16 L (22-30) mmol/L Anion Gap 27 mmol/L BUN 99 H (7-17) mg/dL Creatinine 19.0 H (0.6-1.2) mg/dL Estimated GFR 3 ml/min BUN/Creatinine Ratio 5 % Glucose 84 (65-100) mg/dL Calcium 8.3 L (8.4-10.2) mg/dL - Medical Decision Making This patient presents to the emergency department with the complaint of missing her last 6 dialysis sessions secondary to a painful and swollen left upper extremity, where the patient has a fistula. On examination the fistula has a palpable thrill and an audible bruit, but the area is grooving lathe tender to palpation. No obvious swelling, skin color change, rash or lesions. The patient's labs shows some leukopenia, anemia of chronic kidney disease, mild hyperkalemia with a potassium of 5.6, and some developing uremia with a BUN of about 100. She also has the renal insufficiency consistent with her end-stage renal disease on hemodialysis. Nephrology was contacted and consulted. The patient will be admitted to the hospital for dialysis and further evaluation and has been accepted for admission by Dr. Urena. Critical Care Time: No Critical care attestation.: If time is entered above; I have spent that time in minutes in the direct care of this critically ill patient, excluding procedure time. ED Disposition Clinical Impression: Missed dialysis, ESRD needing dialysis, Lupus nephritis, Uremia Hypertension Qualifiers: Hypertension type: renovascular hypertension Qualified Code(s): I15.0 - Renovascular hypertension Disposition: OP ADMIT IP TO THIS HOSP Is pt being admited?: Yes Condition: Stable Time of Disposition: 14:22
[2020-03-02 14:07] LABS: Calcium 8.3 mg/dL (8.4-10.2)
[2020-03-02 14:39] LABS: Basophils # (Auto) 0.1 K/mm3 (0.0-0.1); Eosinophils % (Auto) 0.9 % (0.0-4.3); Hematocrit 28.8 % (30.3-42.9); Hemoglobin 9.5 gm/dl (10.1-14.3); Lymphocytes # (Auto) 1.3 K/mm3 (1.2-5.4); Lymphocytes % (Auto) 44.4 % (13.4-35.0); Mean Corpuscular HGB Conc 33 % (30-34); Mean Corpuscular Volume 90 fl (79-97); Monocytes # (Auto) 0.2 K/mm3 (0.0-0.8); Monocytes % (Auto) 6.4 % (0.0-7.3); Platelet Count 268 K/mm3 (140-440); Red Blood Count 3.19 M/mm3 (3.65-5.03); Red Cell Distribution Width 17.7 % (13.2-15.2)
[2020-03-02 18:57] LABS: Hepatitis B Surface Antigen Non-Reactive (Negative)
[2020-03-02] MEDS ORDERED: ACETAMINOPHEN 325 MG TAB PO ONE (20:21)
[2020-03-02] MEDS ORDERED: HYDROmorphone 1 MG/1 ML INJ IV PRN (21:56)
[2020-03-02] MEDS ORDERED: oxyCODONE /ACETAMINOPHEN 5-325MG TAB PO PRN (21:56)
[2020-03-02] MEDS ORDERED: ONDANSETRON 4 MG/2 ML INJ IV PRN (21:56)
[2020-03-02] MEDS ORDERED: ACETAMINOPHEN 325 MG TAB PO PRN (21:56)
[2020-03-02] MEDS ORDERED: NON-FORMULARY EACH (Nifedipine [Nifedipine Er] 60 MG Tablet.Er) PO SCH (22:00)
--- NOTE | 2020-03-02 22:09 | History and Physical Report ---
History of Present Illness Date of examination: 03/02/20 Date of admission: 03/02/20 14:23 Chief complaint: Missed hemodialysis for 2 weeks Shortness of breath for 2 days History of present illness: 34-year-old -Algerian female with history of end-stage renal disease missed 2 weeks of hemodialysis. As per patient the fistula site was infiltrated and swollen and painful because of which she started Dialysis. The swelling arm is improved and comes back to the emergency room for evaluation for possible hemodialysis continuation. Some shortness of breath present. Some orthopnea present. No fever or chills. No exposure to coronavirus. - Past Medical History Previous Medical History?: Yes --Hypertension: Yes --Renal Disease: Yes (HD on --) - Surgical History --AV fistula left upper arm. - Social History Smoking Status: Never Smoker Substance Use Type: None Family history --HTN - Medications Home Medications: Home Medications Medication Instructions Recorded Confirmed Last Taken Type Calcium Citrate/Vitamin D3 1 tab PO DAILY 01/26/20 01/26/20 01/25/20 History [Calcitrate + Vit D Caplet] Furosemide [Lasix TAB] 40 mg PO QDAY 01/26/20 01/26/20 01/25/20 History Hydroxychloroquine [Plaquenil] 200 mg PO QDAY 01/26/20 01/26/20 01/25/20 History Multivit-Min/Iron/Vitamin K [Adult 1 each PO DAILY 01/26/20 01/26/20 01/25/20 History Multivitamin-Iron Tablet] NIFEdipine [Nifedipine ER] 60 mg PO DAILY 01/26/20 01/26/20 01/25/20 History azaTHIOprine [Imuran] 50 mg PO BID 01/26/20 01/26/20 01/25/20 History Famotidine [Pepcid] 20 mg PO DAILY tablet 01/31/20 Unknown Rx Ferrous Sulfate [Feosol 325 MG tab] 325 mg PO TID tablet 01/31/20 Unknown Rx Furosemide [Lasix TAB] 40 mg PO QDAY #30 tablet 01/31/20 Unknown Rx Losartan [Cozaar] 100 mg PO QDAY #30 tablet 01/31/20 Unknown Rx hydrALAZINE [Apresoline TAB] 50 mg PO Q8HR #90 tablet 01/31/20 Unknown Rx hydrALAZINE [Apresoline TAB] 50 mg PO Q8HR 30 Days #90 tab 01/31/20 Unknown Rx Review of Systems ROS: Stated complaint: MISSED DIALYSIS Other details as noted in HPI Comment: All other systems reviewed and negative Constitutional: denies: chills, fever Eyes: denies: eye pain, vision change ENT: denies: ear pain, throat pain Respiratory: denies: cough, shortness of breath Cardiovascular: denies: chest pain, palpitations Gastrointestinal: denies: abdominal pain, vomiting Genitourinary: denies: dysuria, discharge Musculoskeletal: myalgia. denies: back pain Skin: denies: rash, lesions Neurological: denies: numbness, paresthesias Medications and Allergies Allergies Allergy/AdvReac Type Severity Reaction Status Date / Time naproxen [From Naprosyn] Allergy Hives Verified 01/25/20 23:41 Home Medications Medication Instructions Recorded Confirmed Last Taken Type Hydroxychloroquine [Plaquenil] 200 mg PO QDAY 01/26/20 03/02/20 01/25/20 History Multivit-Min/Iron/Vitamin K [Adult 1 each PO DAILY 01/26/20 03/02/20 01/25/20 History Multivitamin-Iron Tablet] NIFEdipine [Nifedipine ER] 60 mg PO BID 01/26/20 03/02/20 01/25/20 History azaTHIOprine [Imuran] 40 mg PO BID 01/26/20 03/02/20 01/25/20 History Ferrous Sulfate [Feosol 325 MG tab] 325 mg PO TID tablet 01/31/20 03/02/20 Unknown Rx Active Meds: Active Medications Acetaminophen (Acetaminophen 325 Mg Tab) 650 mg PO Q4H PRN PRN Reason: Pain MILD(1-3)/Fever >100.5/JIM Azathioprine (Azathioprine 50 Mg Tab) 50 mg PO BID GIA Famotidine (Famotidine 10 Mg Tab) 10 mg PO BID GIA Ferrous Sulfate (Ferrous Sulfate 325 Mg Tab) 325 mg PO QDAY GIA Hydromorphone HCl (Hydromorphone 1 Mg/1 Ml Inj) 0.5 mg IV Q3H PRN PRN Reason: Pain , Severe (7-10) Hydroxychloroquine Sulfate (Hydroxychloroquine 200 Mg Tab) 200 mg PO QDAY GIA Multivitamins/Minerals (Multivitamins,Ther W-Minerals Tab) 1 each PO QDAY GIA Nifedipine (Nifedipine Xl 60 Mg Tab) 60 mg PO BID GIA Ondansetron HCl (Ondansetron 4 Mg/2 Ml Inj) 4 mg IV Q8H PRN PRN Reason: Nausea And Vomiting Oxycodone/Acetaminophen (Oxycodone /Acetaminophen 5-325mg Tab) 1 tab PO Q6H PRN PRN Reason: Pain, Moderate (4-6) Sodium Chloride (Sodium Chloride 0.9% 10 Ml Flush Syringe) 10 ml IV BID GIA Sodium Chloride (Sodium Chloride 0.9% 10 Ml Flush Syringe) 10 ml IV PRN PRN PRN Reason: LINE FLUSH Exam - Constitutional Vitals: Temp Pulse Resp BP Pulse Ox 97.5 F L 96 H 18 157/111 99 03/02/20 18:50 03/02/20 21:15 03/02/20 20:26 03/02/20 21:15 03/02/20 18:00 General appearance: Present: mild distress, well-nourished - EENT Eyes: Present: PERRL ENT: hearing intact, clear oral mucosa - Neck Neck: Present: supple, normal ROM - Respiratory Respiratory effort: normal Respiratory: bilateral: CTA - Cardiovascular Heart rate: 78 Rhythm: regular Heart Sounds: Present: S1 & S2. Absent: rub, click - Extremities Extremities: pulses symmetrical, No edema Peripheral Pulses: within normal limits - Abdominal General gastrointestinal: Present: soft, non-tender, non-distended, normal bowel sounds Female genitourinary: Present: normal - Integumentary Integumentary: Present: clear, warm, dry - Musculoskeletal Musculoskeletal: gait normal, strength equal bilaterally - Psychiatric Psychiatric: appropriate mood/affect, intact judgment & insight - Neurologic Neurologic: CNII-XII intact, moves all extremities - Allied Health Allied health notes reviewed: nursing, case management Results - Labs CBC & Chem 7: 03/03/20 06:58 03/03/20 06:58 Labs: Laboratory Last Values WBC 2.9 K/mm3 (4.5-11.0) L 03/02/20 13:14 RBC 3.19 M/mm3 (3.65-5.03) L 03/02/20 13:14 Hgb 9.5 gm/dl (10.1-14.3) L 03/02/20 13:14 Hct 28.8 % (30.3-42.9) L 03/02/20 13:14 MCV 90 fl (79-97) 03/02/20 13:14 MCH 30 pg (28-32) 03/02/20 13:14 MCHC 33 % (30-34) 03/02/20 13:14 RDW 17.7 % (13.2-15.2) H 03/02/20 13:14 Plt Count 268 K/mm3 (140-440) 03/02/20 13:14 Lymph % (Auto) 44.4 % (13.4-35.0) H 03/02/20 13:14 [place] % (Auto) 6.4 % (0.0-7.3) 03/02/20 13:14 Eos % (Auto) 0.9 % (0.0-4.3) 03/02/20 13:14 Baso % (Auto) Veterans Employment Representative 03/02/20 13:14 Lymph # (Auto) 1.3 K/mm3 (1.2-5.4) 03/02/20 13:14 [place] # (Auto) 0.2 K/mm3 (0.0-0.8) 03/02/20 13:14 Eos # (Auto) 0.0 K/mm3 (0.0-0.4) 03/02/20 13:14 Baso # (Auto) 0.1 K/mm3 (0.0-0.1) 03/02/20 13:14 Seg Neutrophils % 46.0 % (40.0-70.0) 03/02/20 13:14 Seg Neutrophils # 1.3 K/mm3 (1.8-7.7) L 03/02/20 13:14 Sodium 137 mmol/L (137-145) 03/02/20 13:14 Potassium 5.6 mmol/L (3.6-5.0) H 03/02/20 13:14 Chloride 99.3 mmol/L (98-107) 03/02/20 13:14 Carbon Dioxide 16 mmol/L (22-30) L 03/02/20 13:14 Anion Gap 27 mmol/L 03/02/20 13:14 BUN 99 mg/dL (7-17) H 03/02/20 13:14 Creatinine 19.0 mg/dL (0.6-1.2) H 03/02/20 13:14 Estimated GFR 3 ml/min 03/02/20 13:14 BUN/Creatinine Ratio 5 % 03/02/20 13:14 Glucose 84 mg/dL (65-100) 03/02/20 13:14 Calcium 8.3 mg/dL (8.4-10.2) L 03/02/20 13:14 Hepatitis A IgM Ab Non-reactive (NonReactive) 03/02/20 Unknown Hep Bs Antigen Non-reactive (Negative) 03/02/20 Unknown Hep B Core IgM Ab Non-reactive (NonReactive) 03/02/20 Unknown - Imaging and Cardiology EKG: report reviewed Chest x-ray: report reviewed Assessment and Plan Advance Directives: Yes (Full code) VTE prophylaxis?: Chemical Plan of care discussed with patient/family: Yes - Patient Problems (1) Volume overload Current Visit: Yes Status: Acute Qualifiers: Hypervolemia type: unspecified Qualified Code(s): E87.70 - Fluid overload, unspecified Plan to address problem: Secondary to missed hemodialysis for 2 weeks Increase ultrafiltration to remove volume Nephrology consulted (2) ESRD needing dialysis Current Visit: Yes Status: Chronic Plan to address problem: Patient missed her dialysis because of arm swelling/infiltration and being painful. Near the fistula site Swelling is resolved and thrill can be felt. Nephrology consult requested (3) Hypertension Current Visit: Yes Status: Chronic Qualifiers: Hypertension type: renovascular hypertension Qualified Code(s): I15.0 - Renovascular hypertension Plan to address problem: Continue antihypertensives (4) Lupus (systemic lupus erythematosus) Current Visit: Yes Status: Chronic Qualifiers: Systemic lupus erythematosus type: unspecified Plan to address problem: Patient on Plaquenil and azathioprine which is to be continued (5) Hyperkalemia Current Visit: Yes Status: Acute Plan to address problem: Mild Should resolve with hemodialysis (6) Anemia in CKD (chronic kidney disease) Current Visit: No Status: Chronic Qualifiers: Chronic kidney disease stage: on chronic dialysis Qualified Code(s): N18.6 - End stage renal disease; D63.1 - Anemia in chronic kidney disease; Z99.2 - Dependence on renal dialysis Plan to address problem: Will defer to nephrology regarding the Epogen (7) DVT prophylaxis Current Visit: Yes Status: Acute Plan to address problem: On heparin and GI prophylaxis
[2020-03-02] MEDS ORDERED: hydrALAZINE 20 MG/1 ML INJ IV PRN (22:12)
[2020-03-02] MEDS: NIFEdipine XL 60 MG TAB PO SCH (23:07)
[2020-03-02] MEDS: HEPARIN 5,000 UNIT/1 ML VIAL SUB-Q SCH ×2 (23:08→23:53)
[2020-03-02] MEDS: FAMOTIDINE 10 MG TAB PO SCH (23:08)
[2020-03-02] MEDS: HYDROXYCHLOROQUINE 200 MG TAB PO SCH (23:08)
[2020-03-02] MEDS: FERROUS SULFATE 325 MG TAB PO SCH (23:08)
[2020-03-02] MEDS: azaTHIOprine 50 MG TAB PO SCH (23:52)
[2020-03-03 09:22] LABS: Basophils # (Auto) 0.1 K/mm3 (0.0-0.1); Basophils % (Auto) 1.8 % (0.0-1.8); Eosinophils # (Auto) 0.1 K/mm3 (0.0-0.4); Eosinophils % (Auto) 2.4 % (0.0-4.3); Hematocrit 23.2 % (30.3-42.9); Hemoglobin 7.9 gm/dl (10.1-14.3); Lymphocytes # (Auto) 1.1 K/mm3 (1.2-5.4); Lymphocytes % (Auto) 39.8 % (13.4-35.0); Mean Corpuscular HGB Conc 34 % (30-34); Mean Corpuscular Volume 89 fl (79-97); Monocytes # (Auto) 0.3 K/mm3 (0.0-0.8); Platelet Count 289 K/mm3 (140-440); Red Blood Count 2.61 M/mm3 (3.65-5.03); Red Cell Distribution Width 17.3 % (13.2-15.2)
[2020-03-03 09:45] LABS: Albumin 3.9 g/dL (3.9-5); Calcium 7.9 mg/dL (8.4-10.2)
[2020-03-03] MEDS ORDERED: [UNRECOGNIZED DRUG - OTHER] PO SCH (10:00)
[2020-03-03] MEDS ORDERED: VITAMIN K PO SCH (10:00)
[2020-03-03] MEDS ORDERED: MULTIVIT MIN PO SCH (10:00)
[2020-03-03] MEDS ORDERED: IRON PO SCH (10:00)
[2020-03-03] MEDS: azaTHIOprine 50 MG TAB PO SCH ×2 (10:10→21:51)
[2020-03-03] MEDS: HEPARIN 5,000 UNIT/1 ML VIAL SUB-Q SCH ×2 (10:10→21:51)
[2020-03-03] MEDS: LOSARTAN 50 MG TAB PO SCH (10:44)
[2020-03-03] MEDS: NIFEdipine XL 60 MG TAB PO SCH ×2 (10:44→21:51)
[2020-03-03] MEDS: FERROUS SULFATE 325 MG TAB PO SCH (10:44)
[2020-03-03] MEDS: HYDROXYCHLOROQUINE 200 MG TAB PO SCH (10:44)
[2020-03-03] MEDS: FAMOTIDINE 10 MG TAB PO SCH ×2 (10:44→21:51)
[2020-03-03] MEDS: MULTIVITAMINS,THER W-MINERALS TAB PO SCH (10:45)
--- NOTE | 2020-03-03 13:47 | Consultation ---
History of Present Illness - Reason for Consult Consult date: 03/03/20 end stage renal disease - History of Present Illness Very pleasant 34-year-old -[place] female, with a past medical history of end-stage renal disease in the setting of biopsy-proven lupus nephritis, along with a history of hypertension, well-known to me from the outpatient clinic, who typically dialyzes at [facility]. Patient presented to the emergency department after missing multiple treatments of hemodialysis secondary to worsening swelling and pain over the site of her left upper extremity AV fist caesar. Apparently fistula was infiltrated during her previous cannulation at the outpatient facility. Because of the continued pain and swelling patient was not able to go to her scheduled dialysis treatments. She was instructed to come into the emergency department because of her multiple missed treatments. She got dialyzed yesterday and per patient she had no issues with the hemodialysis treatment here. Denies any significant swelling or pain at this time over the site of the left upper extremity AV fistula. Labs reviewed. Past History Past Medical History: dialysis, hypertension, hyperlipidemia, other (Lupus nephritis) Past Surgical History: Other (AV fistula creation) Social history: no significant social history, lives with family Family history: no significant family history Medications and Allergies Allergies Allergy/AdvReac Type Severity Reaction Status Date / Time naproxen [From Naprosyn] Allergy Hives Verified 01/25/20 23:41 Home Medications Medication Instructions Recorded Confirmed Last Taken Type Hydroxychloroquine [Plaquenil] 200 mg PO QDAY 01/26/20 03/02/20 01/25/20 History Multivit-Min/Iron/Vitamin K [Adult 1 each PO DAILY 01/26/20 03/02/20 01/25/20 History Multivitamin-Iron Tablet] NIFEdipine [Nifedipine ER] 60 mg PO BID 01/26/20 03/02/20 01/25/20 History azaTHIOprine [Imuran] 40 mg PO BID 01/26/20 03/02/20 01/25/20 History Ferrous Sulfate [Feosol 325 MG tab] 325 mg PO TID tablet 01/31/20 03/02/20 Unknown Rx Active Meds: Active Medications Acetaminophen (Acetaminophen 325 Mg Tab) 650 mg PO Q4H PRN PRN Reason: Pain MILD(1-3)/Fever >100.5/JIM Azathioprine (Azathioprine 50 Mg Tab) 50 mg PO BID [facility] Last Admin: 03/02/20 23:52 Dose: Not Given Documented by: Famotidine (Famotidine 10 Mg Tab) 10 mg PO BID [facility] Last Admin: 03/03/20 10:44 Dose: 10 mg Documented by: Ferrous Sulfate (Ferrous Sulfate 325 Mg Tab) 325 mg PO QDAY [facility] Last Admin: 03/03/20 10:44 Dose: 325 mg Documented by: Heparin Sodium (Porcine) (Heparin 5,000 Unit/1 Ml Vial) 5,000 unit SUB-Q Q12HR [facility] Last Admin: 03/02/20 23:53 Dose: Not Given Documented by: Hydralazine HCl (Hydralazine 20 Mg/1 Ml Inj) 10 mg IV Q3H PRN PRN Reason: Blood Pressure Hydromorphone HCl (Hydromorphone 1 Mg/1 Ml Inj) 0.5 mg IV Q3H PRN PRN Reason: Pain , Severe (7-10) Hydroxychloroquine Sulfate (Hydroxychloroquine 200 Mg Tab) 200 mg PO QDAY [facility] Last Admin: 03/03/20 10:44 Dose: 200 mg Documented by: Losartan Potassium (Losartan 50 Mg Tab) 100 mg PO QDAY [facility] Last Admin: 03/03/20 10:44 Dose: 100 mg Documented by: Multivitamins/Minerals (Multivitamins,Ther W-Minerals Tab) 1 each PO QDAY [facility] Last Admin: 03/03/20 10:45 Dose: 1 each Documented by: Nifedipine (Nifedipine Xl 60 Mg Tab) 60 mg PO BID [facility] Last Admin: 03/03/20 10:44 Dose: 60 mg Documented by: Ondansetron HCl (Ondansetron 4 Mg/2 Ml Inj) 4 mg IV Q8H PRN PRN Reason: Nausea And Vomiting Oxycodone/Acetaminophen (Oxycodone /Acetaminophen 5-325mg Tab) 1 tab PO Q6H PRN PRN Reason: Pain, Moderate (4-6) Last Admin: 03/02/20 23:14 Dose: 1 tab Documented by: Sodium Chloride (Sodium Chloride 0.9% 10 Ml Flush Syringe) 10 ml IV BID [facility] Last Admin: 03/03/20 10:44 Dose: 10 ml Documented by: Sodium Chloride (Sodium Chloride 0.9% 10 Ml Flush Syringe) 10 ml IV PRN PRN PRN Reason: LINE FLUSH Review of Systems All systems: negative Constitutional: fatigue, weakness Ears, nose, mouth and throat: deferred Breasts: deferred Exam - Vital Signs Vital signs: Vital Signs Temp Pulse Resp BP Pulse Ox 97.8 F 111 H 20 158/109 100 03/02/20 11:47 03/02/20 11:47 03/02/20 11:47 03/02/20 11:47 03/02/20 11:47 - General Appearance General appearance: well-developed, appears stated age, chronically ill EENT: ATNC Neck: Present: neck supple Respiratory: Clear to Ascultation, Normal Exam Heart: regular, S1S2 Gastrointestinal: Present: normal Integumentary: no rash Neurologic: no focal deficit Psychiatric: cooperative Results - Lab Results 03/03/20 06:58 03/03/20 06:58 Most recent lab results Calcium 7.9 mg/dL (8.4-10.2) L 03/03/20 06:58 Assessment and Plan - Patient Problems (1) ESRD needing dialysis Current Visit: Yes Status: Chronic Plan to address problem: Patient on outpatient Wednesday hemodialysis schedule. She continues to dialyze at [facility]. She received her dialysis inpatient yesterday. No acute indications for hemodialysis today. (2) Hyperkalemia Current Visit: Yes Status: Acute Plan to address problem: Correct with hemodialysis. Counseled patient importance of compliance with treatments. Counseled patient on importance of maintaining a low potassium diet. (3) Volume overload Current Visit: Yes Status: Acute Qualifiers: Hypervolemia type: unspecified Qualified Code(s): E87.70 - Fluid overload, unspecified Plan to address problem: Patient is euvolemic at this time. Improved with ultrafiltration with hemodialysis. Continue to monitor. (4) Lupus (systemic lupus erythematosus) Current Visit: Yes Status: Chronic Qualifiers: Systemic lupus erythematosus type: unspecified Plan to address problem: Patient continues on Plaquenil therapy. Off immunosuppressants otherwise given her progression to end-stage renal disease. We will continue to monitor. (5) Anemia Current Visit: No Status: Acute Qualifiers: Chronic kidney disease stage: on chronic dialysis Plan to address problem: Titrate COOPER therapy per protocol while on hemodialysis. (6) Hypertensive chronic kidney disease with stage 5 chronic kidney disease or end stage renal disease Current Visit: No Status: Chronic Plan to address problem: Monitor blood pressures with current regimen.
--- NOTE | 2020-03-04 01:11 | Progress Note ---
Assessment and Plan - Patient Problems (1) Volume overload Current Visit: Yes Status: Acute Qualifiers: Hypervolemia type: unspecified Qualified Code(s): E87.70 - Fluid overload, unspecified Plan to address problem: Secondary to missed hemodialysis for 2 weeks Increase ultrafiltration to remove volume Nephrology consulted (2) ESRD needing dialysis Current Visit: Yes Status: Chronic Plan to address problem: Patient missed her dialysis because of arm swelling/infiltration and being painful. Near the fistula site Swelling is resolved and thrill can be felt. Nephrology consult requested (3) Hypertension Current Visit: Yes Status: Chronic Qualifiers: Hypertension type: renovascular hypertension Qualified Code(s): I15.0 - Renovascular hypertension Plan to address problem: Continue antihypertensives (4) Lupus (systemic lupus erythematosus) Current Visit: Yes Status: Chronic Qualifiers: Systemic lupus erythematosus type: unspecified Plan to address problem: Patient on Plaquenil and azathioprine which is to be continued (5) Hyperkalemia Current Visit: Yes Status: Acute Plan to address problem: Mild Should resolve with hemodialysis (6) Anemia in CKD (chronic kidney disease) Current Visit: No Status: Chronic Qualifiers: Chronic kidney disease stage: on chronic dialysis Qualified Code(s): N18.6 - End stage renal disease; D63.1 - Anemia in chronic kidney disease; Z99.2 - Dependence on renal dialysis Plan to address problem: Will defer to nephrology regarding the Epogen (7) DVT prophylaxis Current Visit: Yes Status: Acute Plan to address problem: On heparin and GI prophylaxis Subjective Date of service: 03/03/20 Principal diagnosis: Volume overload Interval history: 34-year-old -Citizen Of [place] female with history of end-stage renal disease missed 2 weeks of hemodialysis. As per patient the fistula site was infiltrated and swollen and painful because of which she started Dialysis. The swelling arm is improved and comes back to the emergency room for evaluation for possible hemodialysis continuation. Some shortness of breath present. Some orthopnea present. No fever or chills. No exposure to coronavirus. 03/03/20 Patient is symptomatically better Patient to confirm whether her hemodialysis chair is still open Patient is due for hemodialysis on Wednesday We will discharge tomorrow if hemodialysis chair is open We will try to get hemodialysis tomorrow Objective - Constitutional Vitals: Vital Signs - 12hr 03/03/20 03/03/20 03/04/20 17:58 20:42 00:22 Temperature 98.4 F 98.6 F Pulse Rate 100 H 96 H 104 H Respiratory 18 18 20 Rate Blood Pressure 158/96 149/104 137/93 O2 Sat by Pulse 99 96 99 Oximetry General appearance: Present: no acute distress, well-nourished - EENT Eyes: PERRL, EOM intact ENT: hearing intact, clear oral mucosa Ears: bilateral: normal - Neck Neck: supple, normal ROM - Respiratory Respiratory effort: normal Respiratory: bilateral: CTA - Breasts Breasts: normal - Cardiovascular Heart rate: 78 Rhythm: regular Heart Sounds: Present: S1 & S2. Absent: gallop, rub Extremities: pulses intact, No edema, normal color, Full ROM - Gastrointestinal General gastrointestinal: Present: soft, non-tender, non-distended, normal bowel sounds - Genitourinary Female genitourinary: normal - Integumentary Integumentary: clear, warm, dry - Musculoskeletal Musculoskeletal: 1, strength equal bilaterally - Neurologic Neurologic: moves all extremities - Psychiatric Psychiatric: memory intact, appropriate mood/affect, intact judgment & insight - Labs CBC & Chem 7: 03/03/20 06:58 03/03/20 06:58 Labs: Abnormal lab results 03/03/20 03/03/20 03/03/20 Range/Units 06:58 06:58 06:58 WBC 2.9 L (4.5-11.0) K/mm3 RBC 2.61 L (3.65-5.03) M/mm3 Hgb 7.9 L (10.1-14.3) gm/dl Hct 23.2 L (30.3-42.9) % RDW 17.3 H (13.2-15.2) % Lymph % (Auto) 39.8 H (13.4-35.0) % Chase % (Auto) 12.0 H (0.0-7.3) % Lymph # (Auto) 1.1 L (1.2-5.4) K/mm3 Seg Neutrophils # 1.3 L (1.8-7.7) K/mm3 Potassium 5.1 H (3.6-5.0) mmol/L BUN 49 H (7-17) mg/dL Creatinine 11.1 H (0.6-1.2) mg/dL Hemoglobin A1c < 4.0 L (4-6) % Calcium 7.9 L (8.4-10.2) mg/dL
[2020-03-04] MEDS ORDERED: SODIUM CHLORIDE 0.9% 100 ML IV PRN (09:11)
[2020-03-04] MEDS: HYDROXYCHLOROQUINE 200 MG TAB PO SCH (09:41)
[2020-03-04] MEDS: HEPARIN 5,000 UNIT/1 ML VIAL SUB-Q SCH (09:41)
[2020-03-04] MEDS: MULTIVITAMINS,THER W-MINERALS TAB PO SCH (09:41)
[2020-03-04] MEDS: FERROUS SULFATE 325 MG TAB PO SCH (09:41)
[2020-03-04] MEDS: FAMOTIDINE 10 MG TAB PO SCH (09:41)
[2020-03-04] MEDS: azaTHIOprine 50 MG TAB PO SCH (09:42)
[2020-03-04] MEDS: NIFEdipine XL 60 MG TAB PO SCH (09:45)
[2020-03-04] MEDS: LOSARTAN 50 MG TAB PO SCH (09:45)
[2020-03-04 14:22] VITALS: BP 163/113
--- NOTE | 2020-03-04 14:55 | Progress Note ---
Assessment and Plan - Patient Problems (1) ESRD needing dialysis Current Visit: Yes Status: Chronic Plan to address problem: Patient on outpatient Wednesday hemodialysis schedule. She continues to dialyze at [facility]. Tolerated HD today without any issues. From nephrology standpoint she is stable for DC. Discussed with patient, and she will need to follow up at the dialysis unit tomorrow for her regularly schedule HD treatment. (2) Hyperkalemia Current Visit: Yes Status: Acute Plan to address problem: Correct with hemodialysis. Counseled patient importance of compliance with treatments. Counseled patient on importance of maintaining a low potassium diet. (3) Volume overload Current Visit: Yes Status: Acute Qualifiers: Hypervolemia type: unspecified Qualified Code(s): E87.70 - Fluid overload, unspecified Plan to address problem: Patient is euvolemic at this time. Improved with ultrafiltration with hemodialysis. Continue to monitor. (4) Lupus (systemic lupus erythematosus) Current Visit: Yes Status: Chronic Qualifiers: Systemic lupus erythematosus type: unspecified Plan to address problem: Patient continues on Plaquenil therapy. Off immunosuppressants otherwise given her progression to end-stage renal disease. We will continue to monitor. (5) Anemia Current Visit: No Status: Acute Qualifiers: Chronic kidney disease stage: on chronic dialysis Plan to address problem: Titrate COOPER therapy per protocol while on hemodialysis. (6) Hypertensive chronic kidney disease with stage 5 chronic kidney disease or end stage renal disease Current Visit: No Status: Chronic Plan to address problem: Monitor blood pressures with current regimen. Subjective Date of service: 03/04/20 Principal diagnosis: Volume overload Interval history: Patient had HD earlier today, tolerated well. No issues noted. Objective - Vital Signs Vital signs: Vital Signs - 12hr 03/04/20 03/04/20 03/04/20 04:21 07:22 08:00 Temperature 98.0 F 99.7 F H Pulse Rate 115 H 111 H Pulse Rate [ 74 Radial] Respiratory 18 18 Rate Blood Pressure 125/77 123/79 O2 Sat by Pulse 95 94 98 Oximetry 03/04/20 03/04/20 03/04/20 09:55 10:10 10:15 Temperature 97.9 F Pulse Rate 102 H 95 H 94 H Pulse Rate [ Radial] Respiratory 18 Rate Blood Pressure 148/89 142/92 146/92 O2 Sat by Pulse Oximetry 03/04/20 03/04/20 03/04/20 11:00 11:15 12:30 Temperature Pulse Rate 88 90 94 H Pulse Rate [ Radial] Respiratory Rate Blood Pressure 146/97 136/98 140/101 O2 Sat by Pulse Oximetry 03/04/20 03/04/20 03/04/20 12:45 13:00 14:19 Temperature 98.8 F Pulse Rate 93 H 90 85 Pulse Rate [ Radial] Respiratory 20 Rate Blood Pressure 151/110 153/115 163/113 O2 Sat by Pulse Oximetry - General Appearance General appearance: well-developed, well-nourished, appears stated age EENT: ATNC, PERRL Neck: no JVD, no thyromegaly Respiratory: Present: Clear to Ascultation, Normal Exam Cardiology: regular, S1S2 Gastrointestinal: normal, normoactive bowel sounds Integumentary: no rash, warm and dry Neurologic: no focal deficit, alert and oriented x3 Musculoskeletal: deferred Psychiatric: cooperative - Lab 03/03/20 06:58 03/03/20 06:58 Most recent lab results Calcium 7.9 mg/dL (8.4-10.2) L 03/03/20 06:58 - Allied health notes Allied health notes reviewed: nursing Medications & Allergies - Medications Allergies/Adverse Reactions: Allergies naproxen [From Naprosyn] Allergy (Verified 01/25/20 23:41) Hives Home Medications: Home Medications Medication Instructions Recorded Confirmed Last Taken Type Hydroxychloroquine [Plaquenil] 200 mg PO QDAY 01/26/20 03/02/20 01/25/20 History Multivit-Min/Iron/Vitamin K [Adult 1 each PO DAILY 01/26/20 03/02/20 01/25/20 History Multivitamin-Iron Tablet] NIFEdipine [Nifedipine ER] 60 mg PO BID 01/26/20 03/02/20 01/25/20 History azaTHIOprine [Imuran] 40 mg PO BID 01/26/20 03/02/20 01/25/20 History Ferrous Sulfate [Feosol 325 MG tab] 325 mg PO TID tablet 01/31/20 03/02/20 Unknown Rx Active Medications: Generic Name Dose Route Start Last Admin Trade Name Freq PRN Reason Stop Dose Admin Acetaminophen 650 mg 03/02/20 21:56 01/17/21 21:50 Acetaminophen 325 Mg Tab PO 650 mg Q4H PRN Administration Pain MILD(1-3)/Fever >100.5/JIM Azathioprine 50 mg 03/02/20 22:00 03/04/20 09:42 Azathioprine 50 Mg Tab PO Not Given BID [facility] Famotidine 10 mg 03/02/20 22:00 03/04/20 09:41 Famotidine 10 Mg Tab PO 10 mg BID [facility] Administration Ferrous Sulfate 325 mg 03/02/20 22:00 03/04/20 09:41 Ferrous Sulfate 325 Mg Tab PO 325 mg QDAY [facility] Administration Heparin Sodium (Porcine) 5,000 unit 03/02/20 22:15 03/04/20 09:41 Heparin 5,000 Unit/1 Ml Vial SUB-Q 5,000 unit Q12HR [facility] Administration Hydralazine HCl 10 mg 03/02/20 22:12 Hydralazine 20 Mg/1 Ml Inj IV Q3H PRN Blood Pressure Hydromorphone HCl 0.5 mg 03/02/20 21:56 Hydromorphone 1 Mg/1 Ml Inj IV Q3H PRN Pain , Severe (7-10) Hydroxychloroquine Sulfate 200 mg 03/02/20 22:00 03/04/20 09:41 Hydroxychloroquine 200 Mg Tab PO 200 mg QDAY [facility] Administration Sodium Chloride 100 mls @ 999 mls/hr 03/04/20 09:11 Nacl 0.9% IV VINICIUS PRN Hypotension Losartan Potassium 100 mg 03/03/20 10:00 03/04/20 09:45 Losartan 50 Mg Tab PO Not Given QDAY [facility] Multivitamins/Minerals 1 each 03/03/20 10:00 03/04/20 09:41 Multivitamins,Ther W-Minerals Tab PO 1 each QDAY [facility] Administration Nifedipine 60 mg 03/02/20 22:00 03/04/20 09:45 Nifedipine Xl 60 Mg Tab PO Not Given BID [facility] Ondansetron HCl 4 mg 03/02/20 21:56 Ondansetron 4 Mg/2 Ml Inj IV Q8H PRN Nausea And Vomiting Oxycodone/Acetaminophen 1 tab 03/02/20 21:56 03/02/20 23:14 Oxycodone /Acetaminophen 5-325mg Tab PO 1 tab Q6H PRN Administration Pain, Moderate (4-6) Sodium Chloride 10 ml 03/02/20 22:00 01/18/21 09:42 Sodium Chloride 0.9% 10 Ml Flush Syringe IV 10 ml BID [facility] Administration Sodium Chloride 10 ml 03/02/20 21:56 Sodium Chloride 0.9% 10 Ml Flush Syringe IV PRN PRN LINE FLUSH
[2020-03-04 15:50] LABS: Hepatitis C Virus Antibody Nonreactive (NonReactive)
--- NOTE | 2020-03-04 16:53 | Discharge Summary ---
Providers - Providers Date of Admission: 03/02/20 14:23 Date of discharge: 03/04/20 Attending physician: ELISHA VALLES 03/02/20 14:20 Consult to Physician [CONS] Routine Comment: Consulting Provider: EIVTA MOROCHO Physician Instructions: Reason For Exam: Dialysis Hospitalization Condition: Stable Hospital course: Subjective Date of service: Clear urine 03/04/20 Principal diagnosis: Volume overload Interval history: 34-year-old -[place] female with history of end-stage renal disease missed 2 weeks of hemodialysis. As per patient the fistula site was infiltrated and swollen and painful because of which she started Dialysis. The swelling arm is improved and comes back to the emergency room for evaluation for possible hemodialysis continuation. Some shortness of breath present. Some orthopnea present. No fever or chills. No exposure to coronavirus. 03/03/20 Patient is symptomatically better Patient to confirm whether her hemodialysis chair is still open Patient is due for hemodialysis on Wednesday We will discharge tomorrow if hemodialysis chair is open We will try to get hemodialysis tomorrow 03/04/2020 Patient had hemodialysis Patient to be discharged to home Patient was counseled about noncompliance with hemodialysis (1) Volume overload Current Visit: Yes Status: Acute Qualifiers: Hypervolemia type: unspecified Qualified Code(s): E87.70 - Fluid overload, unspecified Plan to address problem: Improved (2) ESRD needing dialysis Current Visit: Yes Status: Chronic Plan to address problem: Patient missed her dialysis because of arm swelling/infiltration and being painful. Near the fistula site Swelling is resolved and thrill can be felt. Patient has a hemodialysis chair which was confirmed Patient to go to her hemodialysis center as per schedule III times a week (3) Hypertension Current Visit: Yes Status: Chronic Qualifiers: Hypertension type: renovascular hypertension Qualified Code(s): I15.0 - Renovascular hypertension Plan to address problem: Continue antihypertensives Blood pressure controlled (4) Lupus (systemic lupus erythematosus) Current Visit: Yes Status: Chronic Qualifiers: Systemic lupus erythematosus type: unspecified Plan to address problem: Patient on Plaquenil and azathioprine which is to be continued (5) Hyperkalemia Current Visit: Yes Status: Acute Plan to address problem: Mild Should resolve with hemodialysis (6) Anemia in CKD (chronic kidney disease) Current Visit: No Status: Chronic Qualifiers: Chronic kidney disease stage: on chronic dialysis Qualified Code(s): N18.6 - End stage renal disease; D63.1 - Anemia in chronic kidney disease; Z99.2 - Dependence on renal dialysis Plan to address problem: Will defer to nephrology regarding the Epogen (7) DVT prophylaxis Current Visit: Yes Status: Acute Plan to address problem: On heparin and GI prophylaxis Identify discharges Disposition: - TO HOME OR SELFCARE - Discharge Diagnoses (1) Volume overload Status: Acute Qualifiers: Hypervolemia type: unspecified Qualified Code(s): E87.70 - Fluid overload, unspecified (2) ESRD needing dialysis Status: Chronic (3) Hypertension Status: Chronic Qualifiers: Hypertension type: renovascular hypertension Qualified Code(s): I15.0 - Renovascular hypertension (4) Lupus (systemic lupus erythematosus) Status: Chronic Qualifiers: Systemic lupus erythematosus type: unspecified (5) Hyperkalemia Status: Acute (6) Anemia in CKD (chronic kidney disease) Status: Chronic Qualifiers: Chronic kidney disease stage: on chronic dialysis Qualified Code(s): N18.6 - End stage renal disease; D63.1 - Anemia in chronic kidney disease; Z99.2 - Dependence on renal dialysis (7) DVT prophylaxis Status: Acute Core Measure Documentation - Palliative Care Palliative Care/ Comfort Measures: Not Applicable - Core Measures Any of the following diagnoses?: none Exam - Constitutional Vitals: Temp Pulse Resp BP Pulse Ox 98.8 F 85 20 163/113 98 03/04/20 14:19 03/04/20 14:19 03/04/20 14:03/04/20 14:03/04/20 08:00 General appearance: Present: no acute distress, well-nourished - EENT Eyes: Present: PERRL ENT: hearing intact, clear oral mucosa - Neck Neck: Present: supple, normal ROM - Respiratory Respiratory effort: normal Respiratory: bilateral: CTA - Cardiovascular Heart rate: 78 Rhythm: regular Heart Sounds: Present: S1 & S2. Absent: rub, click - Extremities Extremities: no ischemia, pulses symmetrical, No edema Peripheral Pulses: within normal limits - Abdominal General gastrointestinal: Present: soft, non-tender, non-distended, normal bowel sounds Female genitourinary: Present: normal - Rectal Rectal Exam: deferred - Integumentary Integumentary: Present: clear, warm, dry - Musculoskeletal Musculoskeletal: gait normal, strength equal bilaterally - Psychiatric Psychiatric: appropriate mood/affect, intact judgment & insight - Neurologic Neurologic: CNII-XII intact, moves all extremities - Allied Health Allied health notes reviewed: nursing, case management Plan Activity: no restrictions Diet: renal (Hello irregular patient presentsIntra-aortic balloon pump hypertension what is the name of this patient is a 37 because of just for the report chest pressure to telemetry bed search has been done for Covid floor tenderness over medical patient without any check patient fourth floor on alcoho) Follow up with: MAYRA LEW,AUTUMN [Other] - 7 Days
== END 2020-03-04 17:55 | disposition home or self-care (01) ==
LOC: ED 11:17 → 4A 14:23
PROVIDERS: ADMIT Internal Medicine; ATTEND Internal Medicine
DX: E87.70 Fluid overload, unspecified (principal); Z20.828 Contact with and (suspected) exposure to other viral communicable diseases; I12.0 Hypertensive chronic kidney disease with stage 5 chronic kidney disease or end stage renal disease; N18.6 End stage renal disease; M32.9 Systemic lupus erythematosus, unspecified; E87.5 Hyperkalemia; D63.1 Anemia in chronic kidney disease; M32.14 Glomerular disease in systemic lupus erythematosus; Z99.2 Dependence on renal dialysis; Z98.890 Other specified postprocedural states; Z79.899 Other long term (current) drug therapy
CPT/HCPCS: 36415; 80048; 80053; 80074; 83036; 85025; 96372; 99284; G0257; G0378; J1644; U0003